=== PATIENT | female | born 1985 | race Caucasian/White ===

== ENCOUNTER 2017-07-12 10:42 | Emergency (ER) | payer SELFPAY ==
[~2017-07-12] VITALS: Ht 157.5 cm; Wt 83.5 kg
--- OUTSIDE RECORDS SUMMARY | 2017-07-12 10:49 | XMS REPORT | Continuity of Care Document ---
Author Author [facility] Organization [facility] Address Unknown Phone Unavailable Allergies There is no data. Medications There is no data. Problems There is no data. Procedures There is no data. Results There is no data. Encounters ACCT No. Visit Date/Time Discharge Status Pt. Type Provider Facility Loc./Unit Complaint [id number] 10/01/2013 10:16:47 10/01/2013 23:59:59 CLS Outpatient Sammie Allen
[2017-07-12] MEDS ORDERED: NS IV 1000 ML 1,000 ML IV ONE (10:55)
--- NOTE | 2017-07-12 11:03 | ED EENT ---
History of Present Illness General Chief Complaint: Eye Problems Stated Complaint: SWOLLEN OPTIC NERVE Nursing Triage Note: PT AMB TO ROOM 6 SENT FROM [facility], W POSSIBLE OPTIC NERVER SWELLING, PT DENIES EYE PROBLEMS AT PRESENT. NO CURRENT CO. WAS GOING FOR RT EYE EXAM AND SENT TO ED FOR FURTHER EVAL Source: patient, RN/ () Exam Limitations: no limitations History of Present Illness Date Seen by Provider: Jul 12, 2017 Time Seen by Provider: 10:49 Initial Comments The patient presents to the ER by private conveyance from her clearance coordinator office where she was getting a routine eye exam for new glasses. The last time she had her eyes checked was in 2011. She does not have any known eye issues however her clearance coordinator to the dilated eye exam and found that her right optic nerve was more edematous than her left. 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 Dr. faye called report and sent her over by private conveyance. The patient states she is not having any headaches, numbness, double vision, blurry vision, weakness or other eye problems. She does say she has headaches usually about once a month but she's had these since she was a child. She says she's had CT scans and she was a child working up a cause of her headaches. She describes her headaches as being bilateral occipital sometimes radiating to behind her eyes bilaterally and they do not throb. They typically require sleep to get over ; last less than a day and are accompanied with nausea vomiting and photophobia. Allergies and Home Medications Allergies Coded Allergies: Penicillins (Verified Allergy, Unknown, 07/12/17) amoxicillin (Verified Allergy, Unknown, 07/12/17) cefaclor (Verified Allergy, Unknown, 07/12/17) meloxicam (Verified Allergy, Unknown, 07/12/17) Patient Home Medication List Home Medication List Reviewed: Yes Review of Systems Constitutional: No chills, No diaphoresis Eyes: Denies Blindness, Denies Blurred Vision, Denies Drainage, Denies Decreased Acuity, Denies Foreign Body Sensation, Denies Inflammation, Denies Pain, Denies Photophobia, Denies Previous Injury, Denies Shadows, Denies Vision Changes, Denies Contact Lenses, Glasses Ears: Denies Dizziness, Denies Pain Nose: denies clots, denies congestion Mouth: denies loose teeth, denies pain, denies swelling Throat: denies pain, denies swelling Gastrointestinal: No nausea, No vomiting Past Oegcbnd-Lmjoxc-Growna Hx Patient Social History Alcohol Use: Occasionally Uses Recreational Drug Use: No Smoking Status: Current Someday Smoker Type Used: Cigarettes, Electronic/Vapor Recent Foreign Travel: No Contact w/Someone Who Travel: No Recent Infectious Disease Expo: No Reproductive System Last Menstrual Period: Jul 12, 2017 Physical Exam Vital Signs Vital Signs - First Documented 07/12/17 10:50 Temp 98.0 Pulse 94 Resp 16 B/P (MAP) 122/73 (89) Pulse Ox 97 General Appearance: WD/WN, no apparent distress Eyes: bilateral eye EOMI, bilateral eye papilledema, bilateral eye other ( bilateral pupils are dilated to 8 mm and unresponsive to light.) Ears: bilateral ear auricle normal, bilateral ear canal normal, bilateral ear TM normal Nose: normal inspection, No active bleeding Mouth/Throat: normal mouth inspection, pharynx normal Neck: non-tender, full range of motion, supple, normal inspection Cardiovascular: normal peripheral pulses, regular rate, rhythm Respiratory: chest non-tender, lungs clear, normal breath sounds, no respiratory distress, no accessory muscle use Neurologic/Psychiatric: animal services officer II-XII nml as tested, no motor/sensory deficits, alert, normal mood/affect, oriented x 3 Progress/Results/Core Measures Results/Orders Lab Results Laboratory Tests Test 07/12/17 11:15 Range/Units White Blood Count 7.2 4.3-11.0 10^3/uL Red Blood Count 4.75 4.35-5.85 10^6/uL Hemoglobin 12.7 11.5-16.0 G/DL Hematocrit 39 35-52 % Mean Corpuscular Volume 82 80-99 FL Mean Corpuscular Hemoglobin 27 25-34 PG Mean Corpuscular Hemoglobin Concent 33 32-36 G/DL Red Cell Distribution Width 14.1 10.0-14.5 % Platelet Count 437 H 130-400 10^3/uL Mean Platelet Volume 9.7 7.4-10.4 FL Neutrophils (%) (Auto) 59 42-75 % Lymphocytes (%) (Auto) 31 12-44 % Monocytes (%) (Auto) 9 0-12 % Eosinophils (%) (Auto) 2 0-10 % Basophils (%) (Auto) 1 0-10 % Neutrophils # (Auto) 4.2 1.8-7.8 X 10^3 Lymphocytes # (Auto) 2.2 1.0-4.0 X 10^3 Monocytes # (Auto) 0.6 0.0-1.0 X 10^3 Eosinophils # (Auto) 0.1 0.0-0.3 10^3/uL Basophils # (Auto) 0.0 0.0-0.1 10^3/uL Sodium Level 140 135-145 MMOL/L Potassium Level 4.1 3.6-5.0 MMOL/L Chloride Level 106 98-107 MMOL/L Carbon Dioxide Level 25 21-32 MMOL/L Anion Gap 9 5-14 MMOL/L Blood Urea Nitrogen 15 7-18 MG/DL Creatinine 0.79 0.60-1.30 MG/DL Estimat Glomerular Filtration Rate > 60 BUN/Creatinine Ratio 19 Glucose Level 104 70-105 MG/DL Calcium Level 9.7 8.5-10.1 MG/DL Total Bilirubin 0.3 0.1-1.0 MG/DL Aspartate Amino Transf (AST/SGOT) 31 5-34 U/L Alanine Aminotransferase (ALT/SGPT) 35 0-55 U/L Alkaline Phosphatase 97 40-136 U/L Total Protein 8.5 H 6.4-8.2 GM/DL Albumin 4.6 H 3.2-4.5 GM/DL My Orders Orders - REGULO HEALY Cbc With Automated Diff (07/12/17 10:55) Comprehensive Metabolic Panel (07/12/17 10:55) Saline Lock/Iv-Start (07/12/17 10:55) Saline Lock/Iv-Start (07/12/17 10:55) Ns Iv 1000 Ml (Sodium Chloride 0.9%) (07/12/17 10:55) Mri Brain & Orbits W/Wo Con (07/12/17 11:49) Gadobutrol Inj (Radiology) (Gadavist Inj (07/12/17 12:45) Medications Given in ED Current Medications Medications Dose Ordered Sig/Tara Route Start Time Stop Time Status Last Admin Dose Admin Gadobutrol 10 mmol ONCE ONCE IV 07/12/17 12:45 07/12/17 12:46 DC 07/12/17 12:35 8 MMOL Sodium Chloride 1,000 ml @ 0 mls/hr Q0M ONCE IV 07/12/17 10:55 07/12/17 10:57 DC 07/12/17 11:22 1,000 MLS/HR Vital Signs/I&O Vital Sign - Last 12Hours 07/12/17 10:50 Temp 98.0 Pulse 94 Resp 16 B/P (MAP) 122/73 (89) Pulse Ox 97 Blood Pressure Mean: 89 Progress Note #1: Time: 11:02 Progress Note Plan to evaluate her papilledema and possible differential for increased intracranial pressure we will obtain a MRI with gadolinium. She has had CTs many many years ago and would like to avoid giving her more radiation and live getting a much better test demonstrate increased ICP. Differential includes pseudopapilledema, malignant hypertension, diabetic papillopathy, etc. She does not have a history to support toxic or diabetic papillotomy. She does have PCOS. Her blood pressure while elevated at 140/70 is not malignant. No history of ingestion of toxins, ethylene glycol, methanol, ethambutol. No evidence for hyperviscosity, hypertension or acute blood loss. Progress Note #2: Time: 14:39 Progress Note Discussed the risk benefits and alternatives to continuing the workup for an asymptomatic patient which would include a spinal tap looking for the opening pressure. The patient says she had meningitis as a child and she still was traumatized by the lumbar tap and if she absolutely doesn't have to have it she would decline getting it at this time. We'll have her follow-up with her primary care physician at [facility]. Diagnostic Imaging Diagonstic Imaging: MRI (with contrast) Plain Films/CT/US/NM/MRI: head Comments VIA [facility]. [place], [place] NAME: AMY FIERRO [facility] REC#: [id number] PT STATUS: REG ER : 1985 PHYSICIAN: REGULO HEALY MD ADMIT DATE: 07/12/17/ER Draft Date of Exam:07/12/17 MRI BRAIN & ORBITS W/WO CON EXAMINATION: MRI of the brain and orbits with and without contrast. INDICATION: Right optic nerve swelling. TECHNIQUE: Multiplanar images utilizing both T1 and T2-weighted sequences were obtained. Additional images following administration of intravenous contrast were also performed. Coronal and axial planes were also obtained both before and after the administration of intravenous contrast. COMPARISON: There are no prior studies available for comparison. FINDINGS: The images through the orbits show that the optic nerves appear symmetrical. There is no abnormal enhancement of either optic nerve to suggest optic neuritis or a mass lesion. The extraocular muscles are also symmetrical and within normal limits. The globes and lenses are unremarkable as well. The optic chiasm is undisturbed. There is no intracranial mass, shift of the midline, or hemorrhage to suggest an acute abnormality. There is no abnormal enhancement on the post contrast series to suggest a neoplastic or infectious process either. Furthermore, there is no abnormal signal arising from the brain on the diffusion series to suggest an area of acute ischemia. The FLAIR series is also unremarkable for any signal abnormality in the periventricular white matter that would indicate demyelinating disease. The ventricles are not abnormally dilated. There are multiple retention cysts involving the floor of each maxillary antrum. These retention cysts have a conglomerate size of approximately 0.9 x 2.4 cm on the right and 1.7 x 2.5 cm on the left. There is also a small retention cyst along the medial wall of the left sphenoid sinus which measures 0.6 x 0.8 cm. The sinuses are otherwise clear. The seventh and eighth nerve complexes are unremarkable. IMPRESSION: 1. There is no evidence for an acute intracranial abnormality. In particular, there is no sign of a mass involving the optic nerves nor is there any evidence for optic neuritis. Clinical followup is recommended. 2. There are bilateral maxillary retention cysts and there is a small subcentimeter retention cyst in the sphenoid sinus. 3. These results will be discussed with Dr. Healy in the ER. Dictated on workstation # [id number] Dict: 07/12/17 1330 Trans: 07/12/17 1410 [id number] Interpreted by: TJ LE MD Electronically signed by: Reviewed: Reviewed by Me, Discussed w/Radiologist (Brenda) Departure Communication (PCP) Dr. faye, clearance coordinator communicated the imaging findings workup and plan. Impression Impression: Primary Impression: Papilledema of both eyes Disposition: 01 HOME, SELF-CARE Condition: Stable Departure-Patient Inst. Decision time for Depature: 14:41 Referrals: NO,LOCAL PHYSICIAN (PCP) Primary Care Physician Patient Instructions: NO INSTRUCTIONS GIVEN Add. Discharge Instructions: Please plan to follow up with a primary care physician in the next 2-4 weeks to discuss your findings. If you starts having any neurologic symptoms such as blurry vision, double vision, new or different headaches or significantly increased frequency of headaches you should return to the ER or your primary care physician for management. Please return to Optometry, Dr. Faye for continued evaluation and management of your eyes. All discharge instructions reviewed with patient and/or family. Voiced understanding. Work/School Note: Local Medical Staff Listing Copy Copies To 1: SIOBHAN GIPSON DO; JEREMIAH NOBLE OD REGULO HEALY Jul 12, 2017 11:03
[2017-07-12 11:23] LABS: BASOPHILS % (AUTO) 1 % (0-10); EOSINOPHILS # (AUTO) 0.1 10^3/uL (0.0-0.3); EOSINOPHILS % (AUTO) 2 % (0-10); HEMATOCRIT 39 % (35-52); HEMOGLOBIN 12.7 G/DL (11.5-16.0); LYMPHOCYTES # (AUTO) 2.2 X 10^3 (1.0-4.0); LYMPHOCYTES % (AUTO) 31 % (12-44); MEAN CORPUSCULAR HEMOGLOBIN 27 PG (25-34); MEAN CORPUSCULAR HGB CONC 33 G/DL (32-36); MEAN CORPUSCULAR VOLUME 82 FL (80-99); MEAN PLATELET VOLUME 9.7 FL (7.4-10.4); MONOCYTES # (AUTO) 0.6 X 10^3 (0.0-1.0); MONOCYTES % (AUTO) 9 % (0-12); NEUTROPHILS # (AUTO) 4.2 X 10^3 (1.8-7.8); NEUTROPHILS % (AUTO) 59 % (42-75); PLATELET COUNT 437 10^3/uL (130-400); RED BLOOD COUNT 4.75 10^6/uL (4.35-5.85); RED CELL DISTRIBUTION WIDTH 14.1 % (10.0-14.5); WHITE BLOOD COUNT 7.2 10^3/uL (4.3-11.0)
[2017-07-12 11:52] LABS: ALANINE AMINOTRANSFERASE 35 U/L (0-55); ALBUMIN 4.6 GM/DL (3.2-4.5); ALKALINE PHOSPHATASE 97 U/L (40-136); BILIRUBIN,TOTAL 0.3 MG/DL (0.1-1.0); BUN/CREATININE RATIO 19; CALCIUM 9.7 MG/DL (8.5-10.1); CARBON DIOXIDE 25 MMOL/L (21-32); CHLORIDE 106 MMOL/L (98-107); CREATININE SERUM 0.79 MG/DL (0.60-1.30); GFR ESTIMATED > 60; GLUCOSE 104 MG/DL (70-105); POTASSIUM 4.1 MMOL/L (3.6-5.0); SODIUM 140 MMOL/L (135-145); TOTAL PROTEIN 8.5 GM/DL (6.4-8.2)
[2017-07-12] MEDS ORDERED: GADOBUTROL 10 MMOL/10 ML (GADAVIST) VIAL IV ONE (12:45)
--- NOTE | 2017-07-12 14:10 | Diagnostic Imaging Report ---
EXAMINATION: MRI of the brain and orbits with and without contrast. INDICATION: Right optic nerve swelling. TECHNIQUE: Multiplanar images utilizing both T1 and T2-weighted sequences were obtained. Additional images following administration of intravenous contrast were also performed. Coronal and axial planes were also obtained both before and after the administration of intravenous contrast. COMPARISON: There are no prior studies available for comparison. FINDINGS: The images through the orbits show that the optic nerves appear symmetrical. There is no abnormal enhancement of either optic nerve to suggest optic neuritis or a mass lesion. The extraocular muscles are also symmetrical and within normal limits. The globes and lenses are unremarkable as well. The optic chiasm is undisturbed. There is no intracranial mass, shift of the midline, or hemorrhage to suggest an acute abnormality. There is no abnormal enhancement on the post contrast series to suggest a neoplastic or infectious process either. Furthermore, there is no abnormal signal arising from the brain on the diffusion series to suggest an area of acute ischemia. The FLAIR series is also unremarkable for any signal abnormality in the periventricular white matter that would indicate demyelinating disease. The ventricles are not abnormally dilated. There are multiple retention cysts involving the floor of each maxillary antrum. These retention cysts have a conglomerate size of approximately 0.9 x 2.4 cm on the right and 1.7 x 2.5 cm on the left. There is also a small retention cyst along the medial wall of the left sphenoid sinus which measures 0.6 x 0.8 cm. The sinuses are otherwise clear. The seventh and eighth nerve complexes are unremarkable. IMPRESSION: 1. There is no evidence for an acute intracranial abnormality. In particular, there is no sign of a mass involving the optic nerves nor is there any evidence for optic neuritis. Clinical followup is recommended. 2. There are bilateral maxillary retention cysts and there is a small subcentimeter retention cyst in the sphenoid sinus. 3. These results were discussed with Dr. Healy in the ER. Dictated by: Dictated on workstation # [id number]
[2017-07-12 14:48] VITALS: BP 122/73
== END 2017-07-12 14:47 | disposition home or self-care (01) ==
LOC: EDUNIT# 10:42 → ER 10:45
DX: H47.10 Unspecified papilledema (principal); F17.210 Nicotine dependence, cigarettes, uncomplicated; Z88.0 Allergy status to penicillin; Z88.1 Allergy status to other antibiotic agents; Z88.6 Allergy status to analgesic agent
CPT/HCPCS: 36415; 70553; 80053; 85025

== ENCOUNTER 2017-08-04 10:13 | Day surgery (SDC) | payer OTHER ==
[~2017-08-04] VITALS: Ht 157.5 cm; Wt 83.5 kg
--- OUTSIDE RECORDS SUMMARY | 2017-08-04 10:18 | XMS REPORT | Continuity of Care Document ---
Author Author [facility] Organization [facility] Address Unknown Phone Unavailable Allergies Active Description Code Type Severity Reaction Onset Reported/Identified Relationship to Patient Clinical Status Yes amoxicillin [id number] Drug Allergy Unknown N/A 07/12/2017 Yes cefaclor [id number] Drug Allergy Unknown N/A 07/12/2017 Yes meloxicam [id number] Drug Allergy Unknown N/A 07/12/2017 Yes Penicillins [id number] Drug Allergy Unknown N/A 07/12/2017 Medications There is no data. Problems Date Dx Coded Attending Type Code Diagnosis Diagnosed By 07/14/2017 REGULO BLAKELY MD Ot F17.210 NICOTINE DEPENDENCE, CIGARETTES, UNCOMPL 07/14/2017 REGULO BLAKELY MD Ot H47.091 OT DISORDERS OF OPTIC NERVE, NEC, RIGHT 07/14/2017 REGULO BLAKELY MD Ot H47.10 UNSPECIFIED PAPILLEDEMA 07/14/2017 REGULO BLAKELY MD Ot Z88.0 ALLERGY STATUS TO PENICILLIN 07/14/2017 REGULO BLAKELY MD Ot Z88.1 ALLERGY STATUS TO OTHER ANTIBIOTIC AGENT 07/14/2017 REGULO BLAKELY MD Ot Z88.6 ALLERGY STATUS TO ANALGESIC AGENT STATUS 07/14/2017 REGULO BLAKELY MD Ot F17.210 NICOTINE DEPENDENCE, CIGARETTES, UNCOMPL 07/14/2017 REGULO BLAKELY MD Ot H47.091 OT DISORDERS OF OPTIC NERVE, NEC, RIGHT 07/14/2017 REGULO BLAKELY MD Ot H47.10 UNSPECIFIED PAPILLEDEMA 07/14/2017 REGULO BLAKELY MD Ot Z88.0 ALLERGY STATUS TO PENICILLIN 07/14/2017 REGULO BLAKELY MD Ot Z88.1 ALLERGY STATUS TO OTHER ANTIBIOTIC AGENT 07/14/2017 REGULO BLAKELY MD Ot Z88.6 ALLERGY STATUS TO ANALGESIC AGENT STATUS Procedures There is no data. Results Test Result Range Complete blood count (CBC) with automated white blood cell (WBC) differential - 07/12/17 11:15 Blood leukocytes automated count (number/volume) 7.2 10*3/uL 4.3-11.0 Blood erythrocytes automated count (number/volume) 4.75 10*6/uL 4.35-5.85 Venous blood hemoglobin measurement (mass/volume) 12.7 g/dL 11.5-16.0 Blood hematocrit (volume fraction) 39 % 35-52 Automated erythrocyte mean corpuscular volume 82 [foz_us] 80-99 Automated erythrocyte mean corpuscular hemoglobin (mass per erythrocyte) 27 pg 25-34 Automated erythrocyte mean corpuscular hemoglobin concentration measurement ( mass/volume) 33 g/dL 32-36 Automated erythrocyte distribution width ratio 14.1 % 10.0-14.5 Automated blood platelet count (count/volume) 437 10*3/uL 130-400 Automated blood platelet mean volume measurement 9.7 [foz_us] 7.4-10.4 Automated blood neutrophils/100 leukocytes 59 % 42-75 Automated blood lymphocytes/100 leukocytes 31 % 12-44 Blood monocytes/100 leukocytes 9 % 0-12 Automated blood eosinophils/100 leukocytes 2 % 0-10 Automated blood basophils/100 leukocytes 1 % 0-10 Blood neutrophils automated count (number/volume) 4.2 10*3 1.8-7.8 Blood lymphocytes automated count (number/volume) 2.2 10*3 1.0-4.0 Blood monocytes automated count (number/volume) 0.6 10*3 0.0-1.0 Automated eosinophil count 0.1 10*3/uL 0.0-0.3 Automated blood basophil count (count/volume) 0.0 10*3/uL 0.0-0.1 Comprehensive metabolic panel - 07/12/17 11:15 Serum or plasma sodium measurement (moles/volume) 140 mmol/L 135-145 Serum or plasma potassium measurement (moles/volume) 4.1 mmol/L 3.6-5.0 Serum or plasma chloride measurement (moles/volume) 106 mmol/L 98-107 Carbon dioxide 25 mmol/L 21-32 Serum or plasma anion gap determination (moles/volume) 9 mmol/L 5-14 Serum or plasma urea nitrogen measurement (mass/volume) 15 mg/dL 7-18 Serum or plasma creatinine measurement (mass/volume) 0.79 mg/dL 0.60-1.30 Serum or plasma urea nitrogen/creatinine mass ratio 19 NRG Serum or plasma creatinine measurement with calculation of estimated glomerular filtration rate > NRG Serum or plasma glucose measurement (mass/volume) 104 mg/dL 70-105 Serum or plasma calcium measurement (mass/volume) 9.7 mg/dL 8.5-10.1 Serum or plasma total bilirubin measurement (mass/volume) 0.3 mg/dL 0.1-1.0 Serum or plasma alkaline phosphatase measurement (enzymatic activity/volume) 97 U/L 40-136 Serum or plasma aspartate aminotransferase measurement (enzymatic activity/ volume) 31 U/L 5-34 Serum or plasma alanine aminotransferase measurement (enzymatic activity/volume ) 35 U/L 0-55 Serum or plasma protein measurement (mass/volume) 8.5 g/dL 6.4-8.2 Serum or plasma albumin measurement (mass/volume) 4.6 g/dL 3.2-4.5 CRP - 07/17/17 14:11 C-REACTIVE PROTEIN 18.8 mg/L <8.0 RA (RHEUMATOID) FACTOR - 07/21/17 10:12 RHEUMATOID FACTOR <14 IU/mL <14 Encounters ACCT No. Visit Date/Time Discharge Status Pt. Type Provider Facility Loc./Unit Complaint [id number] 10/01/2013 10:16:47 10/01/2013 23:59:59 CLS Outpatient Sammie Allen [id number] 07/28/2017 13:00:00 07/28/2017 23:59:59 CLS Outpatient ELSA SELLERS [facility] [id number] 07/21/2017 10:00:00 Document Registration [id number] 07/17/2017 13:40:00 Document Registration [id number] 07/12/2017 10:45:00 07/12/2017 14:47:00 DIS Outpatient REDDY CHE, REGULO Correa [facility] ER SWOLLEN OPTIC NERVE
[2017-08-04 11:54] VITALS: BP 127/77
--- NOTE | 2017-08-04 14:12 | Anesthesia-Procedure Note ---
Procedures/Interventions Procedure Start/Stop/Diagnosis Date of Procedure: Aug 04, 2017 Start Time: 11:10 Referring Physician: Dr Conroy Preprocedural Diagnosis: Headaches, Poss Pseudotumor Cerebri Brief History Anesthesia Note ([id number]) Pt sent here for Lumbar Puncture. She has a long-standing history of headaches and approximately 4 weeks ago her mechanical cad designer noticed an abnormality on her eye exam. She was sent here for opening pressure on lumbar puncture. +/- Lumbar Puncture was discussed with patient and consent was signed. Stop Time: 11:30 Lumbar Puncture Discussed Risk,Benefits: Yes Patient Consents: Yes Position: L3-4, Left Sterile Technique: Yes (Sterile Prep and drape with ChloraPrep) Opening Pressure: Opening pressure of 34 cm CSF Fluid Color: Clear Spinal Needle Used: Other (25 G Pencan) Procedure Notes First attempt at L4-5 by Thalia Merritt had only bony contact. She attempted under my direct supervision and I also had only bony contact so I relocalized at the L3-4 level and got + CSF after 1 redirect. She had a transient paresthesia which resolved with needle withdrawal. No additional lab tests were ordered by Dr Conroy so after the opening pressure of 34 cm CSF was obtained, needle was removed and a sterile bandage applied. Pt tolerated the procedure well. KARISSA MAYO DO Aug 04, 2017 14:11
== END 2017-08-04 11:54 | disposition home or self-care (01) ==
LOC: SDC 10:13
PROVIDERS: ATTEND Internal Medicine
DX: R51 Headache (principal); H47.10 Unspecified papilledema

== ENCOUNTER → 2019-10-09 | Outpatient (CLI) | payer OTHER ==
--- NOTE | 2019-10-09 10:03 | Diagnostic Imaging Report ---
PROCEDURE: US Non-ob pelvis comp/trans. TECHNIQUE: Multiple Real-time grayscale images were obtained of the pelvis in various projections endovaginally. Transabdominal imaging was also performed. INDICATION: Abnormal uterine bleeding. FINDINGS: The uterus measures 7.8 x 4.6 x 3.7 cm. The endometrium is 8 mm in thickness. No myometrial mass is detected. The right ovary measures 2.9 x 1.8 x 2.1 cm and the left ovary measures 2.8 x 2.6 x 2.3 cm. There is blood flow to both ovaries. No adnexal mass or free fluid is seen. There appear to be cervical nabothian cysts present. IMPRESSION: Unremarkable pelvic ultrasound. Dictated by: Dictated on workstation # [id number]
== END ==
LOC: RAD 08:59
PROVIDERS: ATTEND Obstetrics & Gynecology
DX: N93.8 Other specified abnormal uterine and vaginal bleeding (principal)
CPT/HCPCS: 76830; 76856

== ENCOUNTER 2019-10-17 05:31 | Outpatient (RCR) | payer OTHER ==
[~2019-10-17] VITALS: Ht 160 cm; Wt 81.8 kg
[~2019-10-17 05:31] MED LIST: AMIT10TA6 PO; ASCO-129 PO; FERR-84 PO; FURO20TA4 PO; METO10TA3 PO; POTA-51 PO
== END 2019-10-17 14:43 | disposition home or self-care (01) ==
LOC: PREOP 05:31
PROVIDERS: ATTEND Obstetrics & Gynecology
DX: Z01.818 Encounter for other preprocedural examination (principal); Z11.59 Encounter for screening for other viral diseases
CPT/HCPCS: 87635

== ENCOUNTER 2019-10-21 09:29 | Day surgery (SDC) | payer OTHER ==
[2019-10-21] VITALS (9 sets, daily range): BP systolic 104–124; BP diastolic 76–97
[~2019-10-21] VITALS: Ht 160 cm; Wt 81.8 kg
--- OUTSIDE RECORDS SUMMARY | 2019-10-21 09:56 | XMS REPORT ---
Author Author KING Nhung MARLENE [facility] Address [address] [place] [address] Care Team Providers Care Global Compensation Manager Name Role Phone MARLENE CERDA Unavailable PROBLEMS Type Condition ICD9-CM Code [id number] Code Onset Dates Condition S tatus SNOMED Code Problem Dysfunctional uterine bleeding N93.8 Active 79084269 Problem Chronic fatigue R53.82 Active 8422 9001 Problem Migraine with aura and without status migrainosu s, not intractable G43.109 Active 5451128 Problem Edema of optic nerve H47.10 Active [id number] ALLERGIES No Information ENCOUNTERS Encounter Location Date Diagnosis [facility] [address] [facility] [id number] [address] [place] [phone] 28 Mar, 2018 [facility] [address] [facility] [id number] [address] [place] [phone] 13 Mar, 2018 [facility] [address] [facility] [id number] [address] [place] [phone] 18 Jan, 2018 Dysfunctional uterine bleedi ng N93.8 and Migraine with aura and without status migrainosus, not intractable G43.109 [facility] [address] [facility] [id number] [address] [place] [phone] 17 Jan, 2018 [facility] [address] [id number] [address] [place] [phone] 13 Dec, 2017 Dysfunctional uterine bleedi ng N93.8 [facility] [address] [facility] [id number] [address] [place] [phone] 11 Dec, 2017 Dysfunctional uterine bleedi ng N93.8 [facility] [address] [facility] [id number] [address] [place] [phone] 04 Dec, 2017 [facility] [address] [facility] [id number] [address] [place] [phone] Nov, [facility] [address] [facility] [id number] [address] [place] [phone] Nov, Family history of diabetes m ellitus (DM) Z83.3 and Migraine with aura and without status migrainosus, not intractable G43.109 [facility] [address] [facility] [id number] [address] [place] [phone] Nov, [facility] [address] [id number] [address] [place] [address] [phone] Oct, [facility] [address] [id number] [address] [place] [address] [phone] Oct, Dental examination Z01.20 [facility] [address] [facility] [id number] [address] [place] [phone] Sep, [facility] [address] [place] [id number] [address] [place] [phone] Sep, Migraine with aura and witho ut status migrainosus, not intractable G43.109 and Chronic fatigue R53.82 [facility] [address] [facility] [id number] [address] [place] [address] August, Migraine with aura and witho ut status migrainosus, not intractable G43.109 ; Encounter to establish care Z76.89 and Contact dermatitis, unspecified contact dermatitis type, unspecified trigger L25.9 [facility] [address] [facility] [id number] [address] [place] [phone] August, [facility] [address] [facility] [id number] [address] [place] [phone] Jul, [facility] [address] [facility] [id number] [address] [place] [address] Jun, Edema of optic nerve H47.10 [facility] [address] [facility] [id number] [address] [place] [phone] Jun, Migraine with aura and witho ut status migrainosus, not intractable G43.109 [facility] [address] [id number] [address] [place] [phone] Jun, [facility] [address] [id number] [address] [place] [address] Jun, Edema of optic nerve H47.10 [facility] [address] [id number] [address] [place] [phone] Jun, Edema of optic nerve H47.10 [facility] [address] [id number] [address] [place] [phone] Jun, Edema of optic nerve H47.10 [facility] [address] [id number] [address] [place] [phone] Jun, Edema of optic nerve H47.10 [facility] [address] [facility] [id number] [address] [place] [phone] Jun, [facility] [address] [id number] [address] [place] [address] [phone] Mar, Dental caries K02.9 [facility] [address] [facility] [id number] [address] [place] [address] [phone] Jan, Dental examination Z01.20 IMMUNIZATIONS No Known Immunizations SOCIAL HISTORY Never Assessed REASON FOR VISIT Requests return call PLAN OF CARE VITAL SIGNS MEDICATIONS Unknown Medications RESULTS No Results PROCEDURES No Known procedures INSTRUCTIONS MEDICATIONS ADMINISTERED No Known Medications MEDICAL (GENERAL) HISTORY Type Description Date Medical History Anemia Medical History Arthritis Medical History Back Trouble Surgical History tonsillectomy
--- OUTSIDE RECORDS SUMMARY | 2019-10-21 09:56 | XMS REPORT ---
Author Author KING Nhung ROSARIO [facility] Address [address] [place] [address] Care Team Providers Care Forgesmith Name Role Phone MARLENE CERDA Unavailable PROBLEMS Type Condition ICD9-CM Code QZK49-FE Code Onset Dates Condition S tatus SNOMED Code Problem Anxiety F41.9 Active 07911688 Problem Dysfunctional uterine bleeding N93.8 Active 33994015 Problem Edema of optic nerve H47.10 Active 550411716 Problem Chronic fatigue R53.82 Active 8422 9001 Problem Migraine with aura and without status migrainosu s, not intractable G43.109 Active 2254285 ALLERGIES No Information ENCOUNTERS Encounter Location Date Diagnosis [id number] [place] [id number] [address] [place] [phone] Mar, [place] [address] [address] 28 Mar, 2018 Anxiety F41.9 ; Encounter fo r initial prescription of contraceptive pills Z30.011 ; Migraine with aura and without status migrainosus, not intractable G43.109 and Dysfunctional uterine bleeding N93.8 [place] [address] [place] [id number] [address] [place] [address] Mar, [facility] [address] [place] [id number] [address] [place] [phone] 18 Jan, 2018 Dysfunctional uterine bleedi ng N93.8 and Migraine with aura and without status migrainosus, not intractable G43.109 [place] [address] [place] [id number] [address] [place] [phone] 17 Jan, 2018 [place] [address] [place] [id number] [address] [place] [phone] Dec, Dysfunctional uterine bleedi ng N93.8 [place] [address] [facility] [id number] [address] [place] [phone] Dec, Dysfunctional uterine bleedi ng N93.8 [facility] [address] [facility] [id number] [address] [place] [phone] Dec, [facility] [address] [facility] [id number] [address] [place] [phone] Nov, [facility] [address] [place] [id number] [place] [phone] Nov, Family history of diabetes m ellitus (DM) Z83.3 and Migraine with aura and without status migrainosus, not intractable G43.109 [facility] [address] [facility] [id number] [address] [place] [phone] Nov, [facility] [address] [id number] [place] [address] [phone] Oct, [facility] [address] [id number] Oct, Dental examination Z01.20 [place] [address] [place] [id number] [address] [place] [phone] Sep, [facility] [address] [place] [id number] [address] [place] [phone] Sep, Migraine with aura and witho ut status migrainosus, not intractable G43.109 and Chronic fatigue R53.82 [facility] [address] [place] [id number] [address] [place] [phone] August, Migraine with aura and witho ut status migrainosus, not intractable G43.109 ; Encounter to [facility] care Z76.89 and Contact dermatitis, unspecified contact dermatitis type, unspecified trigger L25.9 [facility] [address] [facility] [id number] [address] [place] [phone] August, [facility] [address] [facility] [id number] [address] [place] [phone] Jul, [place] [address] [id number] [address] [place] [phone] 30 Jun, 2017 Edema of optic nerve H47.10 [facility] [address] [id number] [address] [place] [phone] Jun, Migraine with aura and witho ut status migrainosus, not intractable G43.109 [facility] [address] [id number] [address] [place] [phone] Jun, [facility] [address] [id number] [address] [place] [phone] Jun, Edema of optic nerve H47.10 [facility] [address] [id number] [address] [place] [phone] Jun, Edema of optic nerve H47.10 [facility] [address] [facility] [id number] [address] [place] [phone] Jun, Edema of optic nerve H47.10 [facility] [address] [id number] [address] [place] [phone] Jun, Edema of optic nerve H47.10 [facility] [address] [facility] [id number] [address] [place] [phone] Jun, [facility] [address] [facility] [id number] [address] [place] [address] [phone] Mar, Dental caries K02.9 [facility] [address] [facility] [id number] [address] [place] [address] [phone] Jan, Dental examination Z01.20 IMMUNIZATIONS No Known Immunizations SOCIAL HISTORY Never Assessed REASON FOR VISIT Medication question PLAN OF CARE VITAL SIGNS MEDICATIONS Unknown Medications RESULTS No Results PROCEDURES No Known procedures INSTRUCTIONS MEDICATIONS ADMINISTERED No Known Medications MEDICAL (GENERAL) HISTORY Type Description Date Medical History Anemia Medical History Arthritis Medical History Back Trouble Surgical History tonsillectomy
--- OUTSIDE RECORDS SUMMARY | 2019-10-21 09:56 | XMS REPORT ---
Author Author KING Nhung ROSARIO [facility] Address [address] [place] [address] Care Team Providers Care Habitat Conservation Planner Name Role Phone MARLENE CERDA Unavailable PROBLEMS Type Condition ICD9-CM Code UVP55-TM Code Onset Dates Condition S tatus SNOMED Code Problem Anxiety F41.9 Active 41223398 Problem Dysfunctional uterine bleeding N93.8 Active 29390668 Problem Edema of optic nerve H47.10 Active 965637337 Problem Chronic fatigue R53.82 Active 8422 9001 Problem Migraine with aura and without status migrainosu s, not intractable G43.109 Active 2568886 ALLERGIES Substance Reaction Event Type Date Status Penicillin V Potassium Unknown Drug Allergy Mar, Activ e Keflex nausea Drug Allergy Mar, Active Amoxicillin anaphylaxis Drug Allergy Mar, Active C-core Unknown Non Drug Allergy Mar, Active ENCOUNTERS Encounter Location Date Diagnosis [place] [id number] [phone] Mar, Anxiety F41.9 ; Encounter fo r initial prescription of contraceptive pills Z30.011 ; Migraine with aura and without status migrainosus, not intractable G43.109 and Dysfunctional uterine bleeding N93.8 [facility] [address] [place] [id number] [address] [place] [phone] Mar, [facility] [address] [place] [id number] [address] [place] [phone] 18 Jan, 2018 Dysfunctional uterine bleedi ng N93.8 and Migraine with aura and without status migrainosus, not intractable G43.109 [facility] [address] [place] [id number] [address] [place] [phone] 17 Jan, 2018 [place] [address] [place] [id number] [address] [place] [phone] Dec, Dysfunctional uterine bleedi ng N93.8 [facility] [address] [id number] [address] [place] [phone] Dec, Dysfunctional uterine bleedi ng N93.8 [facility] [address] [id number] [address] [place] [phone] Dec, [facility] [address] [id number] [address] [place] [phone] Nov, [facility] [address] [id number] [address] [place] [phone] Nov, Family history of diabetes m ellitus (DM) Z83.3 and Migraine with aura and without status migrainosus, not intractable G43.109 [facility] [address] [facility] [id number] [address] [place] [phone] Nov, [facility] [address] [id number] [address] [place] [address] [phone] Oct, [facility] [address] [id number] [address] [place] [address] [phone] Oct, Dental examination Z01.20 [facility] [address] [facility] [id number] [address] [place] [phone] Sep, [facility] [address] [facility] [id number] [address] [place] [phone] Sep, Migraine with aura and witho ut status migrainosus, not intractable G43.109 and Chronic fatigue R53.82 [facility] [address] [id number] [address] [place] [phone] August, Migraine with aura and witho ut status migrainosus, not intractable G43.109 ; Encounter to establish care Z76.89 and Contact dermatitis, unspecified contact dermatitis type, unspecified trigger L25.9 [facility] [address] [facility] [id number] [address] [place] [phone] August, [facility] [address] [facility] [id number] [address] [place] [phone] Jul, [facility] [address] [facility] [id number] [address] [place] [phone] 30 Jun, 2017 Edema of optic nerve H47.10 [facility] [address] [id number] [address] [place] [phone] Jun, Migraine with aura and witho ut status migrainosus, not intractable G43.109 [facility] [address] [id number] [address] [place] [phone] Jun, [facility] [address] [facility] [id number] [address] [place] [phone] Jun, Edema of optic nerve H47.10 [facility] [address] [facility] [id number] [address] [place] [phone] Jun, Edema of optic nerve H47.10 [facility] [address] [facility] [id number] [address] [place] [phone] Jun, Edema of optic nerve H47.10 [facility] [address] [id number] [address] [place] [phone] Jun, Edema of optic nerve H47.10 [facility] [address] [facility] [id number] [address] [place] [phone] 14 Jun, 2017 [facility] [address] [facility] [id number] [address] [place] [address] [phone] Mar, Dental caries K02.9 [facility] [address] [facility] [id number] [address] [place] [address] [phone] Jan, Dental examination Z01.20 IMMUNIZATIONS No Known Immunizations SOCIAL HISTORY Never Assessed REASON FOR VISIT Anxiety, had been seen here in December for low hemoglobin and was put on medic ation and states that she has not had a period since then Castillo Villafana MA, Is also n areli medications refilled PLAN OF CARE Activity Details Follow Up 3 Months Reason:DUB, anxiety VITAL SIGNS Height 61 in 2018-03-28 Weight 188.2 lbs 2018-03-28 Temperature 97.4 degrees Fahrenheit 2018-03-28 Heart Rate 99 bpm 2018-03-28 Respiratory Rate 20 2018-03-28 BMI 35.56 kg/m2 2018-03-28 Blood pressure systolic 126 mmHg 2018-03-28 Blood pressure diastolic 72 mmHg 2018-03-28 MEDICATIONS Medication Instructions Dosage Frequency Start Date End Date Duration S tatus HydrOXYzine HCl 25 MG Orally every 8 hrs 1 tablet as needed 8h Mar, 30 day(s) Active ibuprofen 800 mg oral TID as needed 1 tab Active Norethin Maynor-Eth Estrad-FE 1-20 MG-MCG Orally Once a day 1 tablet 24h Mar, 28 day(s) Active Ferrous Sulfate 325 (65 Fe) MG Orally twice a day 1 tablet 12h Dec, 30 days Active Jhxurdlfad-FDML-Ljebejvb 50-325-40 MG Orally 2 times a day 1 cap renee as needed 12h Sep, Active Zofran ODT 4 MG Orally every 4 hrs 1 tablet on the tong ue and allow to dissolve as needed 4h Dec, Active RESULTS No Results PROCEDURES No Known procedures INSTRUCTIONS MEDICATIONS ADMINISTERED No Known Medications MEDICAL (GENERAL) HISTORY Type Description Date Medical History Anemia Medical History Arthritis Medical History Back Trouble Surgical History tonsillectomy
--- OUTSIDE RECORDS SUMMARY | 2019-10-21 09:57 | XMS REPORT ---
Author Author Nhung PIRES Organization [facility] Address [address] [place] [address] Care Team Providers Care Area Captain Name Role Phone BALJINDER PIRES Unavailable PROBLEMS Type Condition ICD9-CM Code UKD75-GC Code Onset Dates Condition S tatus SNOMED Code Problem Chronic fatigue R53.82 Active 8422 9001 Problem Migraine with aura and without status migrainosu s, not intractable G43.109 Active 8792888 Problem Edema of optic nerve H47.10 Active 378013610 ALLERGIES No Information ENCOUNTERS Encounter Location Date Diagnosis [facility] [address] [id number] [address] [place] [address] [phone] Oct, [facility] [address] [facility] [id number] [address] [place] [phone] Sep, [facility] [address] [facility] [id number] [address] [place] [phone] Sep, Migraine with aura and witho ut status migrainosus, not intractable G43.109 and Chronic fatigue R53.82 [facility] [address] [facility] [id number] [address] [place] [phone] August, Migraine with aura and witho ut status migrainosus, not intractable G43.109 ; Encounter to establish care Z76.89 and Contact dermatitis, unspecified contact dermatitis type, unspecified trigger L25.9 [facility] [address] [facility] [id number] [address] [place] [phone] August, [facility] [address] [facility] [id number] [address] [place] [phone] Jul, [facility] [address] [facility] [id number] [address] [place] [phone] Jun, Edema of optic nerve H47.10 [facility] [address] [id number] [address] [place] [phone] Jun, Migraine with aura and witho ut status migrainosus, not intractable G43.109 [facility] [address] [id number] [address] [place] [phone] 28 Jun, 2017 [facility] [address] [id number] [address] [place] [phone] Jun, Edema of optic nerve H47.10 [facility] [address] [id number] [address] [place] [phone] Jun, Edema of optic nerve H47.10 [facility] [address] [id number] [address] [place] [phone] 22 Jun, 2017 Edema of optic nerve H47.10 [facility] [address] [id number] [address] [place] [phone] Jun, Edema of optic nerve H47.10 [facility] [address] [id number] [address] [place] [phone] 14 Jun, 2017 [facility] [id number] [place] [address] [id number] Mar, Dental caries K02.9 [facility] [address] [facility] [id number] [address] [place] [address] [phone] Jan, Dental examination Z01.20 IMMUNIZATIONS No Known Immunizations SOCIAL HISTORY Never Assessed REASON FOR VISIT Lumbar punture PLAN OF CARE VITAL SIGNS MEDICATIONS Unknown Medications RESULTS No Results PROCEDURES No Known procedures INSTRUCTIONS MEDICATIONS ADMINISTERED No Known Medications MEDICAL (GENERAL) HISTORY Type Description Date Medical History Anemia Medical History Arthritis Medical History Back Trouble Surgical History tonsillectomy
--- OUTSIDE RECORDS SUMMARY | 2019-10-21 09:57 | XMS REPORT ---
Author Author KING Nhung ROSARIO Organization [facility] Address [address] [place] [address] Care Team Providers Care Appointment Clerk Name Role Phone MARLENE CERDA Unavailable PROBLEMS Type Condition ICD9-CM Code [id number] Code Onset Dates Condition S tatus SNOMED Code Problem Chronic fatigue R53.82 Active 8422 9001 Problem Migraine with aura and without status migrainosu s, not intractable G43.109 Active 4774708 Problem Edema of optic nerve H47.10 Active 066215392 ALLERGIES Substance Reaction Event Type Date Status Keflex nausea Drug Allergy August, Active Amoxicillin anaphylaxis Drug Allergy August, Active C-core Unknown Non Drug Allergy August, Active ENCOUNTERS Encounter Location Date Diagnosis [facility] [id number] [place] [phone] Nov, Family history of diabetes m ellitus (DM) Z83.3 and Migraine with aura and without status migrainosus, not intractable G43.109 [facility] [address] [id number] [address] [place] [phone] Nov, [facility] [id number] [place] [address] [phone] Oct, [facility] [address] [id number] [address] [place] [address] [id number] Oct, Dental examination Z01.20 [facility] [address] [facility] [id number] [address] [place] [phone] Sep, [facility] [address] [id number] [address] [place] [phone] Sep, Migraine with aura and witho ut status migrainosus, not intractable G43.109 and Chronic fatigue R53.82 [facility] [address] [id number] [address] [place] [phone] August, Migraine with aura and witho ut status migrainosus, not intractable G43.109 ; Encounter to establish care Z76.89 and Contact dermatitis, unspecified contact dermatitis type, unspecified trigger L25.9 [facility] [address] [id number] [address] [place] [phone] August, [facility] [address] [id number] [address] [place] [phone] Jul, [facility] [address] [id number] [address] [place] [phone] 30 Jun, 2017 Edema of optic nerve H47.10 [facility] [address] [facility] [id number] [address] [place] [phone] Jun, Migraine with aura and witho ut status migrainosus, not intractable G43.109 [facility] [address] [id number] [address] [place] [phone] Jun, [facility] [address] [id number] [address] [place] [phone] Jun, Edema of optic nerve H47.10 [facility] [address] [facility] [id number] [address] [place] [phone] Jun, Edema of optic nerve H47.10 [facility] [address] [facility] [id number] [address] [place] [phone] Jun, Edema of optic nerve H47.10 [facility] [address] [id number] [address] [place] [phone] Jun, Edema of optic nerve H47.10 [facility] [address] [facility] [id number] [address] [place] [phone] 14 Jun, 2017 [facility] [address] [id number] [address] [place] [address] [id number] Mar, Dental caries K02.9 [facility] [address] [id number] [address] [place] [address] [place] [phone] Jan, Dental examination Z01.20 IMMUNIZATIONS No Known Immunizations SOCIAL HISTORY Never Assessed REASON FOR VISIT Establish Care from Dr. Conroy. Rodney, RN, Needs refills on migrain medication s and rash appearing intermittently. PLAN OF CARE Activity Details Follow Up 4 Weeks Reason:migraines VITAL SIGNS Height 61 in 2017-09-08 Weight 185.5 lbs 2017-09-08 Heart Rate 86 bpm 2017-09-08 Respiratory Rate 20 2017-09-08 BMI 35.05 kg/m2 2017-09-08 Blood pressure systolic 108 mmHg 2017-09-08 Blood pressure diastolic 64 mmHg 2017-09-08 MEDICATIONS Medication Instructions Dosage Frequency Start Date End Date Duration S tatus Triamcinolone Acetonide 0.1 % Externally Twice a day 1 appli cation to affected area 12h August, 30 days Active Ondansetron 4 MG Orally every 8 hours, PRN 1 tablet Jun, 05 days Active Topiramate 25 MG Orally Once a day 1 tablet 24h August, 30 day(s) Active Fioricet 50-300-40 MG Orally 2 times a day PRN 1 capsule as needed Active RESULTS No Results PROCEDURES No Known procedures INSTRUCTIONS MEDICATIONS ADMINISTERED No Known Medications MEDICAL (GENERAL) HISTORY Type Description Date Medical History Anemia Medical History Arthritis Medical History Back Trouble Surgical History tonsillectomy
--- OUTSIDE RECORDS SUMMARY | 2019-10-21 09:57 | XMS REPORT ---
Author Author Nhung PIRES Organization [facility] Address [address] [place] [address] Care Team Providers Care Straight Knife Machine Cutter Name Role Phone BALJINDER PIRES Unavailable PROBLEMS Type Condition ICD9-CM Code UBQ49-SW Code Onset Dates Condition S tatus SNOMED Code Problem Chronic fatigue R53.82 Active 8422 9001 Problem Migraine with aura and without status migrainosu s, not intractable G43.109 Active 4185325 Problem Edema of optic nerve H47.10 Active [id number] ALLERGIES No Information ENCOUNTERS Encounter Location Date Diagnosis [facility] [address] [id number] [address] [place] [address] [phone] Oct, [facility] [address] [facility] [id number] [address] [place] [phone] Sep, [facility] [address] [facility] [id number] [address] [place] [phone] Sep, Migraine with aura and witho ut status migrainosus, not intractable G43.109 and Chronic fatigue R53.82 [facility] [address] [facility] [id number] [address] [place] [phone] August, Migraine with aura and witho ut status migrainosus, not intractable G43.109 ; Encounter to establish care Z76.89 and Contact dermatitis, unspecified contact dermatitis type, unspecified trigger L25.9 [facility] [address] [facility] [id number] [address] [place] [phone] August, [facility] [address] [facility] [id number] [address] [place] [phone] Jul, [facility] [address] [facility] [id number] [address] [place] [address] Jun, Edema of optic nerve H47.10 [facility] [address] [id number] [address] [place] [address] Jun, Migraine with aura and witho ut status migrainosus, not intractable G43.109 [facility] [address] [id number] [address] [place] [phone] 28 Jun, 2017 [facility] [address] [id number] [address] [place] [phone] Jun, Edema of optic nerve H47.10 [facility] [address] [id number] [address] [place] [phone] Jun, Edema of optic nerve H47.10 [facility] [address] [id number] [address] [place] [phone] 22 Jun, 2017 Edema of optic nerve H47.10 [facility] [address] [id number] [address] [place] [phone] Jun, Edema of optic nerve H47.10 [facility] [address] [id number] [address] [place] [phone] 14 Jun, 2017 [facility] [address] [place] [address] [phone] Mar, Dental caries K02.9 [facility] [address] [id number] [address] [place] [address] [phone] Jan, Dental examination Z01.20 IMMUNIZATIONS No Known Immunizations SOCIAL HISTORY Never Assessed REASON FOR VISIT Labs PLAN OF CARE VITAL SIGNS MEDICATIONS Unknown Medications RESULTS No Results PROCEDURES No Known procedures INSTRUCTIONS MEDICATIONS ADMINISTERED No Known Medications MEDICAL (GENERAL) HISTORY Type Description Date Medical History Anemia Medical History Arthritis Medical History Back Trouble Surgical History tonsillectomy
--- OUTSIDE RECORDS SUMMARY | 2019-10-21 09:57 | XMS REPORT ---
Author Author KING Nhung MARLENE [facility] Address [address] [place] [address] Care Team Providers Care Hair Spinner Name Role Phone MARLENE CERDA Unavailable PROBLEMS Type Condition ICD9-CM Code CNF99-KO Code Onset Dates Condition S tatus SNOMED Code Problem Dysfunctional uterine bleeding N93.8 Active 50142438 Problem Chronic fatigue R53.82 Active 8422 9001 Problem Migraine with aura and without status migrainosu s, not intractable G43.109 Active 6018991 Problem Edema of optic nerve H47.10 Active [id number] ALLERGIES No Information ENCOUNTERS Encounter Location Date Diagnosis [facility] [place] [address] [phone] 16 Jan, 2018 [facility] [place] [address] [id number] [address] [place] [phone] 13 Dec, 2017 Dysfunctional uterine bleedi ng N93.8 [facility] [place] [id number] [place] [phone] Dec, Dysfunctional uterine bleedi ng N93.8 [facility] [place] [address] [id number] [address] [place] [phone] Dec, [facility] [place] [address] [id number] [address] [place] [phone] Nov, [facility] [place] [id number] [place] [phone] Nov, Family history of diabetes alyce linder (DM) Z83.3 and Migraine with aura and without status migrainosus, not intractable G43.109 [facility] [address] [facility] [id number] [address] [place] [phone] Nov, [facility] [address] [id number] [address] [place] [address] [phone] Oct, [facility] [address] [id number] [address] [place] [address] [phone] Oct, Dental examination Z01.20 [facility] [place] [address] [id number] [address] [place] [phone] Sep, [facility] [place] [address] [id number] [address] [place] [phone] Sep, Migraine with aura and witho ut status migrainosus, not intractable G43.109 and Chronic fatigue R53.82 [facility] [place] [address] [id number] [address] [place] [phone] August, Migraine with aura and witho ut status migrainosus, not intractable G43.109 ; Encounter to establish care Z76.89 and Contact dermatitis, unspecified contact dermatitis type, unspecified trigger L25.9 [facility] [place] [address] [id number] [address] [place] [phone] August, [facility] [place] [address] [id number] [address] [place] [phone] Jul, [facility] [place] [address] [id number] [address] [place] [phone] Jun, Edema of optic nerve H47.10 [facility] [address] [id number] [address] [place] [phone] Jun, Migraine with aura and witho ut status migrainosus, not intractable G43.109 [facility] [place] [address] [id number] [address] [place] [phone] Jun, [facility] [place] [address] [id number] [address] [place] [phone] Jun, Edema of optic nerve H47.10 [facility] [place] [address] [id number] [address] [place] [phone] Jun, Edema of optic nerve H47.10 [facility] [place] [address] [facility] [id number] [address] [place] [phone] 22 Jun, 2017 Edema of optic nerve H47.10 [facility] [place] [address] [facility] [id number] [address] [place] [phone] 19 Jun, 2017 Edema of optic nerve H47.10 [facility] [place] [address] [facility] [id number] [address] [place] [phone] 14 Jun, 2017 [facility] [address] [facility] [id number] [address] [place] [address] [phone] Mar, Dental caries K02.9 [facility] [address] [facility] [id number] [address] [place] [address] [phone] Jan, Dental examination Z01.20 IMMUNIZATIONS No Known [...]
--- OUTSIDE RECORDS SUMMARY | 2019-10-21 09:57 | XMS REPORT ---
Author Author Nhung PIRES Organization [facility] Address [address] [place] [address] Care Team Providers Care Bead Forming Machine Set Up Operator Name Role Phone BALJINDER PIRES Unavailable PROBLEMS Type Condition ICD9-CM Code SNX43-VF Code Onset Dates Condition S tatus SNOMED Code Problem Chronic fatigue R53.82 Active 8422 9001 Problem Migraine with aura and without status migrainosu s, not intractable G43.109 Active 0401215 Problem Edema of optic nerve H47.10 Active [id number] ALLERGIES No Information ENCOUNTERS Encounter Location Date Diagnosis [facility] [address] [facility] [id number] [address] [place] [phone] Nov, Family history of diabetes m ellitus (DM) Z83.3 and Migraine with aura and without status migrainosus, not intractable G43.109 [facility] [address] [facility] [id number] [address] [place] [phone] Nov, [facility] [address] [id number] [address] [place] [address] [id number] Oct, [facility] [address] [id number] [address] [place] [address] [phone] Oct, Dental examination Z01.20 [facility] [address] [id number] [address] [place] [phone] Sep, [facility] [address] [facility] [id number] [address] [place] [phone] Sep, Migraine with aura and witho ut status migrainosus, not intractable G43.109 and Chronic fatigue R53.82 [facility] [address] [facility] [id number] [address] [place] [phone] August, Migraine with aura and witho ut status migrainosus, not intractable G43.109 ; Encounter to establish care Z76.89 and Contact dermatitis, unspecified contact dermatitis type, unspecified trigger L25.9 [facility] [address] [id number] [address] [place] [phone] August, [facility] [address] [id number] [address] [place] [phone] Jul, [facility] [address] [id number] [address] [place] [phone] Jun, Edema of optic nerve H47.10 [facility] [address] [id number] [address] [place] [phone] Jun, Migraine with aura and witho ut status migrainosus, not intractable G43.109 [facility] [address] [id number] [address] [place] [phone] Jun, [facility] [address] [id number] [address] [place] [phone] Jun, Edema of optic nerve H47.10 [facility] [address] [id number] [address] [place] [phone] Jun, Edema of optic nerve H47.10 [facility] [address] [id number] [address] [place] [phone] Jun, Edema of optic nerve H47.10 [facility] [address] [id number] [address] [place] [phone] Jun, Edema of optic nerve H47.10 [facility] [address] [id number] [address] [place] [phone] Jun, [facility] [address] [id number] [address] [place] [address] [id number] Mar, Dental caries K02.9 [facility] [address] [id number] [address] [place] [address] [phone] Jan, Dental examination Z01.20 IMMUNIZATIONS No Known Immunizations SOCIAL HISTORY Never Assessed REASON FOR VISIT Requests return call PLAN OF CARE VITAL SIGNS MEDICATIONS No Known Medications RESULTS No Results PROCEDURES No Known procedures INSTRUCTIONS MEDICATIONS ADMINISTERED No Known Medications MEDICAL (GENERAL) HISTORY Type Description Date Medical History Anemia Medical History Arthritis Medical History Back Trouble Surgical History tonsillectomy
--- OUTSIDE RECORDS SUMMARY | 2019-10-21 09:57 | XMS REPORT ---
Author Author KING Nhung MARLENE [facility] Address [address] [place] [address] Care Team Providers Care Supervisor Decorating Name Role Phone MARLENE CERDA Unavailable PROBLEMS Type Condition ICD9-CM Code UBY90-BM Code Onset Dates Condition S tatus SNOMED Code Problem Dysfunctional uterine bleeding N93.8 Active 90816317 Problem Chronic fatigue R53.82 Active 8422 9001 Problem Migraine with aura and without status migrainosu s, not intractable G43.109 Active 2317289 Problem Edema of optic nerve H47.10 Active 483736357 ALLERGIES Substance Reaction Event Type Date Status Keflex nausea Drug Allergy Nov, Active Amoxicillin anaphylaxis Drug Allergy Nov, Active C-core Unknown Non Drug Allergy Nov, Active ENCOUNTERS Encounter Location Date Diagnosis [facility] [address] [facility] [id number] [address] [place] [phone] Jan, [facility] [address] [id number] [address] [place] [phone] 13 Dec, 2017 Dysfunctional uterine bleedi ng N93.8 [facility] [address] [id number] [address] [place] [phone] 11 Dec, 2017 Dysfunctional uterine bleedi ng N93.8 [facility] [address] [facility] [place] [id number] [address] [place] [phone] 04 Dec, 2017 [facility] [address] [facility] [id number] [address] [place] [phone] Nov, [facility] [address] [id number] [address] [place] [phone] Nov, Family history of diabetes m ellitus (DM) Z83.3 and Migraine with aura and without status migrainosus, not intractable G43.109 [facility] [address] [id number] [address] [place] [phone] Nov, [facility] [address] [id number] [address] [place] [address] [id number] Oct, [facility] [address] [id number] [address] [place] [address] [phone] Oct, Dental examination Z01.20 [facility] [address] [id number] [address] [place] [phone] Sep, [facility] [address] [id number] [address] [place] [phone] Sep, Migraine with aura and witho ut status migrainosus, not intractable G43.109 and Chronic fatigue R53.82 [facility] [address] [facility] [place] [id number] [address] [place] [phone] August, Migraine with aura and witho ut status migrainosus, not intractable G43.109 ; Encounter to establish care Z76.89 and Contact dermatitis, unspecified contact dermatitis type, unspecified trigger L25.9 [facility] [address] [facility] [place] [id number] [address] [place] [phone] August, [facility] [address] [facility] [place] [id number] [address] [place] [phone] Jul, [facility] [address] [facility] [place] [id number] [address] [place] [phone] Jun, Edema of optic nerve H47.10 [facility] [address] [id number] [address] [place] [phone] Jun, Migraine with aura and witho ut status migrainosus, not intractable G43.109 [facility] [address] [facility] [place] [id number] [address] [place] [phone] Jun, [facility] [address] [facility] [place] [id number] [address] [place] [phone] Jun, Edema of optic nerve H47.10 [facility] [address] [facility] [place] [id number] [address] [place] [phone] 23 Jun, 2017 Edema of optic nerve H47.10 [facility] [address] [facility] [place] [id number] [address] [place] [phone] 22 Jun, 2017 Edema of optic nerve H47.10 [facility] [address] [facility] [place] [id number] [address] [place] [phone] 19 Jun, 2017 Edema of optic nerve H47.10 [facility] [address] [id number] [address] [place] [phone] 14 Jun, 2017 [facility] [address] [facility] [id number] [address] [place] [address] [id number] Mar, Dental caries K02.9 [facility] [address] [facility] [id number] [address] [place] [address] [phone] Jan, Dental examination Z01.20 IMMUNIZATIONS No Known Immunizations SOCIAL HISTORY Never Assessed REASON FOR VISIT Testing for Diabetes- pt reports this runs in her family and has never been test ed. Medication review Lucy Green RN PLAN OF CARE Activity Details Follow Up prn Reason: VITAL SIGNS Height 61 in 2017-12-06 Weight 190.3 lbs 2017-12-06 Temperature 98.5 degrees Fahrenheit 2017-12-06 Heart Rate 111 bpm 2017-12-06 Respiratory Rate 20 2017-12-06 BMI 35.95 kg/m2 2017-12-06 Blood pressure systolic 110 mmHg 2017-12-06 Blood pressure diastolic 76 mmHg 2017-12-06 MEDICATIONS Medication Instructions Dosage Frequency Start Date End Date Duration S juaquinus Kjtqsyweoq-XEAU-Abtyofcx 50-325-40 MG Orally 2 times a day 1 cap renee as needed 12h 11 Sep, 2017 Active Clindamycin HCl 150 MG Orally every 6 hrs 2 capsules 6h 7 days Active RESULTS No Results PROCEDURES No Known procedures INSTRUCTIONS MEDICATIONS ADMINISTERED No Known Medications MEDICAL (GENERAL) HISTORY Type Description Date Medical History Anemia Medical History Arthritis Medical History Back Trouble Surgical History tonsillectomy
--- OUTSIDE RECORDS SUMMARY | 2019-10-21 09:57 | XMS REPORT ---
Author Author KING Nhung ROSARIO [facility] Address [address] [place] [address] Care Team Providers Care Soil Analyst Name Role Phone MARLENE CERDA Unavailable PROBLEMS Type Condition ICD9-CM Code [id number] Code Onset Dates Condition S tatus SNOMED Code Problem Dysfunctional uterine bleeding N93.8 Active 11994845 Problem Chronic fatigue R53.82 Active 8422 9001 Problem Migraine with aura and without status migrainosu s, not intractable G43.109 Active 7056473 Problem Edema of optic nerve H47.10 Active [id number] ALLERGIES Substance Reaction Event Type Date Status Keflex nausea Drug Allergy Dec, Active Amoxicillin anaphylaxis Drug Allergy Dec, Active C-core Unknown Non Drug Allergy Dec, Active ENCOUNTERS Encounter Location Date Diagnosis [facility] [address] [facility] [id number] [address] [place] [phone] Jan, [facility] [address] [place] [id number] [address] [place] [phone] Dec, Dysfunctional uterine bleedi ng N93.8 [facility] [address] [place] [place] [id number] [address] [place] [phone] Dec, Dysfunctional uterine bleedi ng N93.8 [facility] [address] [facility] [id number] [address] [place] [phone] Dec, [facility] [address] [facility] [id number] [address] [place] [phone] Nov, [facility] [address] [place] [place] [id number] [address] [place] [phone] 08 Nov, 2017 Family history of diabetes m ellitus (DM) Z83.3 and Migraine with aura and without status migrainosus, not intractable G43.[address] [facility] [address] [id number] [address] [place] [phone] Nov, [facility] [address] [id number] [address] [place] [phone] Oct, [facility] [address] [id number] [address] [place] [address] [phone] Oct, Dental examination Z01.20 [facility] [address] [id number] [address] [place] [phone] Sep, [facility] [address] [id number] [address] [place] [phone] Sep, Migraine with aura and witho ut status migrainosus, not intractable G43.109 and Chronic fatigue R53.82 [facility] [address] [facility] [id number] [address] [place] [phone] August, Migraine with aura and witho ut status migrainosus, not intractable G43.109 ; Encounter to establish care Z76.89 and Contact dermatitis, unspecified contact dermatitis type, unspecified trigger L25.9 [facility] [address] [facility] [id number] [address] [place] [phone] August, [facility] [address] [facility] [id number] [address] [place] [phone] Jul, [facility] [address] [facility] [id number] [address] [place] [phone] Jun, Edema of optic nerve H47.10 [facility] [address] [id number] [address] [place] [phone] Jun, Migraine with aura and witho ut status migrainosus, not intractable G43.109 [facility] [address] [facility] [id number] [address] [place] [phone] Jun, [facility] [address] [facility] [id number] [address] [place] [phone] Jun, Edema of optic nerve H47.10 [facility] [address] [facility] [id number] [address] [place] [phone] 23 Jun, 2017 Edema of optic nerve H47.10 [facility] [address] [facility] [id number] [address] [place] [phone] 22 Jun, 2017 Edema of optic nerve H47.10 [facility] [address] [facility] [id number] [address] [place] [phone] 19 Jun, 2017 Edema of optic nerve H47.10 [facility] [address] [facility] [id number] [address] [place] [phone] 14 Jun, 2017 [facility] [address] [facility] [id number] [address] [place] [address] [phone] Mar, Dental caries K02.9 [facility] [address] [place] [address] [id number] [address] [place] [address] [phone] Jan, Dental examination Z01.20 IMMUNIZATIONS No Known Immunizations SOCIAL HISTORY Never Assessed REASON FOR VISIT 2 day follow up ----LORIennettRRajinder PLAN OF CARE Activity Details Follow Up 4 Weeks Reason:dysfunctional uterine bleeding VITAL SIGNS Height 61 in 2018-01-11 Weight 190 lbs 2018-01-11 Temperature 98.8 degrees Fahrenheit 2018-01-11 Heart Rate 90 bpm 2018-01-11 Respiratory Rate 20 2018-01-11 BMI 35.90 kg/m2 2018-01-11 Blood pressure systolic 92 mmHg 2018-01-11 Blood pressure diastolic 58 mmHg 2018-01-11 MEDICATIONS Medication Instructions Dosage Frequency Start Date End Date Duration S tatus ibuprofen 800 oral TID as needed 1 Active Uzfmmcbbii-BYJG-Sbklizom 50-325-40 MG Orally 2 times a day 1 cap renee as needed 12h Sep, Active Ferrous Sulfate 325 (65 Fe) MG Orally twice a day 1 tablet 12h Dec, 30 day(s) Active Zofran ODT 4 MG Orally every 4 hrs 1 tablet on the tong ue and allow to dissolve as needed 4h Dec, Active Provera 10 mg Orally Once a day 1 tablet with food 24h Dec, Dec, 5 day(s) Active RESULTS Name Result Date Reference Range HEMOGLOBIN (IN HOUSE) 2018-01-11 HEMOGLOBIN 11.3 11.5 - 16 gm/dL Lot # [id number] Exp date 12/22/18 PROCEDURES Procedure Date Ordered Result Body Site HEMOGLOBIN Jan 11, 2018 INSTRUCTIONS MEDICATIONS ADMINISTERED No Known Medications MEDICAL (GENERAL) HISTORY Type Description Date Medical History Anemia Medical History Arthritis Medical History Back Trouble Surgical History tonsillectomy
--- OUTSIDE RECORDS SUMMARY | 2019-10-21 09:57 | XMS REPORT ---
Author Author KING Nhung ROSARIO Organization [facility] [place] Address [address] [place] [address] Care Team Providers Care Cellophane Tester Name Role Phone MARLENE CERDA Unavailable PROBLEMS Type Condition ICD9-CM Code SKJ03-HY Code Onset Dates Condition S tatus SNOMED Code Problem Chronic fatigue R53.82 Active 8422 9001 Problem Migraine with aura and without status migrainosu s, not intractable G43.109 Active 1314898 Problem Edema of optic nerve H47.10 Active [id number] ALLERGIES Substance Reaction Event Type Date Status Keflex nausea Drug Allergy Sep, Active Amoxicillin anaphylaxis Drug Allergy Sep, Active C-core Unknown Non Drug Allergy Sep, Active ENCOUNTERS Encounter Location Date Diagnosis [facility] [place] [address] [place] [id number] [place] [phone] Nov, Family history of diabetes m ellitus (DM) Z83.3 and Migraine with aura and without status migrainosus, not intractable G43.109 [facility] [address] [place] [id number] [address] [place] [phone] Nov, [facility] [address] [place] [id number] [address] [place] [address] [phone] Oct, [facility] [address] [place] [id number] [address] [place] [address] [phone] Oct, Dental examination Z01.20 [facility] [place] [address] [facility] [id number] [address] [place] [phone] Sep, [facility] [place] [address] [place] [id number] [address] [place] [phone] Sep, Migraine with aura and witho ut status migrainosus, not intractable G43.109 and Chronic fatigue R53.82 [facility] [place] [address] [id number] [address] [place] [phone] August, Migraine with aura and witho ut status migrainosus, not intractable G43.109 ; Encounter to establish care Z76.89 and Contact dermatitis, unspecified contact dermatitis type, unspecified trigger L25.9 [facility] [place] [address] [id number] [address] [place] [phone] August, [facility] [place] [address] [id number] [address] [place] [phone] Jul, [facility] [place] [address] [id number] [address] [place] [phone] 30 Jun, 2017 Edema of optic nerve H47.10 [facility] [address] [facility] [id number] [address] [place] [phone] Jun, Migraine with aura and witho ut status migrainosus, not intractable G43.109 [facility] [place] [address] [id number] [address] [place] [phone] Jun, [facility] [place] [address] [id number] [address] [place] [phone] Jun, Edema of optic nerve H47.10 [facility] [place] [address] [facility] [id number] [address] [place] [phone] Jun, Edema of optic nerve H47.10 [facility] [place] [address] [facility] [id number] [address] [place] [phone] Jun, Edema of optic nerve H47.10 [facility] [place] [address] [id number] [address] [place] [phone] Jun, Edema of optic nerve H47.10 [facility] [place] [address] [facility] [id number] [address] [place] [phone] 14 Jun, 2017 [facility] [address] [id number] [address] [place] [address] [phone] Mar, Dental caries K02.9 [facility] [address] [id number] [address] [place] [address] [place] [phone] Jan, Dental examination Z01.20 IMMUNIZATIONS No Known Immunizations SOCIAL HISTORY Never Assessed REASON FOR VISIT migrain medication-TEE murphy PLAN OF CARE Activity Details Follow Up 3 Months Reason:headaches VITAL SIGNS Height 61 in 2017-10-09 Weight 185.5 lbs 2017-10-09 Temperature 99.1 degrees Fahrenheit 2017-10-09 Heart Rate 92 bpm 2017-10-09 Respiratory Rate 20 2017-10-09 BMI 35.05 kg/m2 2017-10-09 Blood pressure systolic 102 mmHg 2017-10-09 Blood pressure diastolic 68 mmHg 2017-10-09 MEDICATIONS Medication Instructions Dosage Frequency Start Date End Date Duration S tatus Topiramate 25 MG Orally Once a day 1 tablet 24h August, 30 day(s) Active Uxnaqsgjpa-RAYB-Rwefbniz 50-325-40 MG Orally 2 times a day 1 cap renee as needed 12h Sep, Active Triamcinolone Acetonide 0.1 % Externally Twice a day 1 appli cation to affected area 12h August, 30 days Active Ondansetron 4 MG Orally every 8 hours, PRN 1 tablet Jun, 05 days Active RESULTS No Results PROCEDURES Procedure Date Ordered Result Body Site COMPLETE CBC W/AUTO DIFF WBC October 09, 2017 COMPREHEN METABOLIC PANEL October 09, 2017 VENIPUNCT, ROUTINE* October 09, 2017 ASSAY THYROID STIM HORMONE October 09, 2017 INSTRUCTIONS MEDICATIONS ADMINISTERED No Known Medications MEDICAL (GENERAL) HISTORY Type Description Date Medical History Anemia Medical History Arthritis Medical History Back Trouble Surgical History tonsillectomy
--- OUTSIDE RECORDS SUMMARY | 2019-10-21 09:57 | XMS REPORT ---
Author Author KING Nhung ROSARIO Organization [facility] Address [address] [place] [address] Care Team Providers Care Poly Operator Name Role Phone MARLENE CERDA Unavailable PROBLEMS Type Condition ICD9-CM Code [id number] Code Onset Dates Condition S tatus SNOMED Code Problem Chronic fatigue R53.82 Active 8422 9001 Problem Migraine with aura and without status migrainosu s, not intractable G43.109 Active 6282075 Problem Edema of optic nerve H47.10 Active [id number] ALLERGIES No Information ENCOUNTERS Encounter Location Date Diagnosis [facility] [address] [place] [id number] [address] [place] [phone] Nov, Family history of diabetes m ellitus (DM) Z83.3 and Migraine with aura and without status migrainosus, not intractable G43.109 [facility] [address] [facility] [id number] [address] [place] [phone] Nov, [facility] [address] [id number] [address] [place] [address] [phone] Oct, [facility] [address] [id number] [address] [place] [address] [phone] Oct, Dental examination Z01.20 [facility] [address] [facility] [id number] [address] [place] [phone] Sep, [facility] [address] [facility] [id number] [address] [place] [phone] Sep, Migraine with aura and witho ut status migrainosus, not intractable G43.109 and Chronic fatigue R53.82 [facility] [address] [facility] [id number] [address] [place] [phone] August, Migraine with aura and witho ut status migrainosus, not intractable G43.109 ; Encounter to establish care Z76.89 and Contact dermatitis, unspecified contact dermatitis type, unspecified trigger L25.9 [facility] [address] [id number] [address] [place] [phone] August, [facility] [address] [id number] [address] [place] [phone] Jul, [facility] [address] [id number] [address] [place] [phone] Jun, Edema of optic nerve H47.10 [facility] [address] [id number] [address] [place] [phone] Jun, Migraine with aura and witho ut status migrainosus, not intractable G43.109 [facility] [address] [id number] [address] [place] [phone] Jun, [facility] [address] [id number] [address] [place] [phone] Jun, Edema of optic nerve H47.10 [facility] [address] [id number] [address] [place] [phone] Jun, Edema of optic nerve H47.10 [facility] [address] [id number] [address] [place] [phone] Jun, Edema of optic nerve H47.10 [facility] [address] [id number] [address] [place] [phone] Jun, Edema of optic nerve H47.10 [facility] [address] [id number] [address] [place] [phone] Jun, [facility] [address] [id number] [address] [place] [address] [phone] Mar, Dental caries K02.9 [facility] [address] [id number] [address] [place] [address] [phone] Jan, Dental examination Z01.20 IMMUNIZATIONS No Known Immunizations SOCIAL HISTORY Never Assessed REASON FOR VISIT medication change PLAN OF CARE VITAL SIGNS MEDICATIONS No Known Medications RESULTS No Results PROCEDURES No Known procedures INSTRUCTIONS MEDICATIONS ADMINISTERED No Known Medications MEDICAL (GENERAL) HISTORY Type Description Date Medical History Anemia Medical History Arthritis Medical History Back Trouble Surgical History tonsillectomy
--- OUTSIDE RECORDS SUMMARY | 2019-10-21 09:57 | XMS REPORT ---
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 Active [id number] ALLERGIES No Information ENCOUNTERS Encounter Location Date Diagnosis [facility] [address] [id number] [address] [place] [address] [phone] Oct, [facility] [address] [facility] [id number] [address] [place] [phone] Sep, [facility] [address] [facility] [id number] [address] [place] [phone] Sep, Migraine with aura and witho ut status migrainosus, not intractable G43.109 and Chronic fatigue R53.82 [facility] [address] [facility] [id number] [address] [place] [phone] August, Migraine with aura and witho ut status migrainosus, not intractable G43.109 ; Encounter to establish care Z76.89 and Contact dermatitis, unspecified contact dermatitis type, unspecified trigger L25.9 [facility] [address] [facility] [id number] [address] [place] [phone] August, [facility] [address] [facility] [id number] [address] [place] [phone] Jul, [facility] [address] [facility] [id number] [address] [place] [phone] Jun, Edema of optic nerve H47.10 [facility] [address] [id number] [address] [place] [phone] Jun, Migraine with aura and witho ut status migrainosus, not intractable G43.109 [facility] [address] [id number] [address] [place] [phone] 28 Jun, 2017 [facility] [address] [id number] [address] [place] [phone] 27 Jun, 2017 Edema of optic nerve H47.10 [facility] [address] [id number] [address] [place] [phone] 23 Jun, 2017 Edema of optic nerve H47.10 [facility] [address] [id number] [address] [place] [phone] 22 Jun, 2017 Edema of optic nerve H47.10 [facility] [address] [id number] [address] [place] [phone] 19 Jun, 2017 Edema of optic nerve H47.10 [facility] [address] [id number] [address] [place] [phone] 14 Jun, 2017 [facility] [id number] [place] [address] [phone] Mar, Dental caries K02.9 [facility] [address] [facility] [id number] [address] [place] [address] [phone] Jan, Dental examination Z01.20 IMMUNIZATIONS No Known Immunizations SOCIAL HISTORY Never Assessed REASON FOR VISIT Lab (walk-in) PLAN OF CARE VITAL SIGNS MEDICATIONS Unknown Medications RESULTS No Results PROCEDURES Procedure Date Ordered Result Body Site PROTHROMBIN TIME July 28, 2017 VENIPUNCT, ROUTINE* July 28, 2017 INSTRUCTIONS MEDICATIONS ADMINISTERED No Known Medications MEDICAL (GENERAL) HISTORY Type Description Date Medical History Anemia Medical History Arthritis Medical History Back Trouble Surgical History tonsillectomy
--- OUTSIDE RECORDS SUMMARY | 2019-10-21 09:57 | XMS REPORT ---
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 Active 327141740 ALLERGIES No Information ENCOUNTERS Encounter Location Date Diagnosis [facility] [address] [phone] 16 Jan, 2018 [facility] [address] [id number] [address] [place] [phone] 13 Dec, 2017 Dysfunctional uterine bleedi ng N93.8 [facility] [address] [id number] [address] [place] [phone] Dec, Dysfunctional uterine bleedi ng N93.8 [facility] [address] [id number] [address] [place] [phone] Dec, [facility] [address] [id number] [address] [place] [phone] Nov, [facility] [address] [id number] [address] [place] [phone] Nov, Family history of diabetes alyce linder (DM) Z83.3 and Migraine with aura and without status migrainosus, not intractable G43.109 [facility] [address] [facility] [id number] [address] [place] [phone] Nov, [facility] [address] [id number] [address] [place] [phone] Oct, [facility] [address] [id number] [address] [place] [phone] Oct, Dental examination Z01.20 [facility] [address] [id number] [address] [place] [phone] Sep, [facility] [address] [id number] [address] [place] [phone] Sep, Migraine with aura and witho ut status migrainosus, not intractable G43.109 and Chronic fatigue R53.82 [facility] [address] [id number] [address] [place] [phone] August, Migraine with aura and witho ut status migrainosus, not intractable G43.109 ; Encounter to establish care Z76.89 and Contact dermatitis, unspecified contact dermatitis type, unspecified trigger L25.9 [facility] [address] [id number] [address] [place] [phone] August, [facility] [address] [id number] [address] [place] [phone] Jul, [facility] [address] [id number] [address] [place] [phone] Jun, Edema of optic nerve H47.10 [facility] [address] [id number] [address] [place] [phone] Jun, Migraine with aura and witho ut status migrainosus, not intractable G43.109 [facility] [address] [id number] [address] [place] [phone] Jun, [facility] [address] [id number] [address] [place] [phone] Jun, Edema of optic nerve H47.10 [facility] [address] [id number] [address] [place] [phone] Jun, Edema of optic nerve H47.10 [facility] [address] [facility] [id number] [address] [place] [phone] 22 Jun, 2017 Edema of optic nerve H47.10 [facility] [address] [facility] [id number] [address] [place] [phone] 19 Jun, 2017 Edema of optic nerve H47.10 [facility] [address] [facility] [id number] [address] [place] [phone] 14 Jun, 2017 [facility] [address] [facility] [id number] [address] [place] [phone] Mar, Dental caries K02.9 [facility] [address] [facility] [id number] [address] [place] [phone] Jan, Dental examination Z01.20 IMMUNIZATIONS No Known [...]
--- OUTSIDE RECORDS SUMMARY | 2019-10-21 09:57 | XMS REPORT ---
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 Active 466061528 ALLERGIES No Information ENCOUNTERS Encounter Location Date Diagnosis [facility] [address] [facility] [id number] [address] [place] [phone] 13 Dec, 2017 [facility] [address] [id number] [address] [place] [phone] Dec, Dysfunctional uterine bleedi ng N93.8 [facility] [address] [id number] [address] [place] [phone] 04 Dec, 2017 [facility] [address] [id number] [address] [place] [phone] Nov, [facility] [address] [id number] [address] [place] [phone] Nov, Family history of diabetes m ellitus (DM) Z83.3 and Migraine with aura and without status migrainosus, not intractable G43.109 [facility] [address] [facility] [id number] [address] [place] [phone] Nov, [facility] [address] [id number] [address] [place] [phone] Oct, [facility] [address] [id number] [address] [place] [address] [phone] Oct, Dental examination Z01.20 [facility] [address] [id number] [address] [place] [phone] Sep, [facility] [address] [facility] [id number] [address] [place] [phone] Sep, Migraine with aura and witho ut status migrainosus, not intractable G43.109 and Chronic fatigue R53.82 [facility] [address] [facility] [id number] [address] [place] [phone] August, Migraine with aura and witho ut status migrainosus, not intractable G43.109 ; Encounter to establish care Z76.89 and Contact dermatitis, unspecified contact dermatitis type, unspecified trigger L25.9 [place] [address] [facility] [id number] [address] [place] [phone] August, [facility] [address] [facility] [id number] [address] [place] [phone] Jul, [facility] [address] [facility] [id number] [address] [place] [phone] Jun, Edema of optic nerve H47.10 [facility] [address] [facility] [id number] [address] [place] [phone] Jun, Migraine with aura and witho ut status migrainosus, not intractable G43.109 [facility] [address] [id number] [address] [place] [phone] Jun, [facility] [address] [facility] [id number] [address] [place] [phone] Jun, Edema of optic nerve H47.10 [place] [address] [id number] [address] [place] [phone] Jun, Edema of optic nerve H47.10 [facility] [address] [facility] [id number] [address] [place] [phone] Jun, Edema of optic nerve H47.10 [facility] [address] [facility] [id number] [address] [place] [phone] Jun, Edema of optic nerve H47.10 [facility] [address] [id number] [address] [place] [address] Jun, [facility] [address] [facility] [id number] [address] [place] [phone] Mar, Dental caries K02.9 [facility] [address] [facility] [id number] [place] [phone] Jan, Dental examination Z01.20 IMMUNIZATIONS No Known Immunizations SOCIAL HISTORY Never Assessed REASON FOR VISIT Rx Change PLAN OF CARE VITAL SIGNS MEDICATIONS Unknown Medications RESULTS No Results PROCEDURES No Known procedures INSTRUCTIONS MEDICATIONS ADMINISTERED No Known Medications MEDICAL (GENERAL) HISTORY Type Description Date Medical History Anemia Medical History Arthritis Medical History Back Trouble Surgical History tonsillectomy
--- OUTSIDE RECORDS SUMMARY | 2019-10-21 09:57 | XMS REPORT ---
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 Active 455849094 ALLERGIES Substance Reaction Event Type Date Status Penicillin V Potassium Unknown Drug Allergy Jan, Activ e Keflex nausea Drug Allergy Jan, Active Amoxicillin anaphylaxis Drug Allergy Jan, Active C-core Unknown Non Drug Allergy Jan, Active ENCOUNTERS Encounter Location Date Diagnosis [facility] [address] [facility] [id number] [address] [place] [phone] Jan, Dysfunctional uterine bleedi ng N93.8 and Migraine with aura and without status migrainosus, not intractable G43.109 [facility] [address] [facility] [id number] [address] [place] [phone] Jan, [facility] [address] [facility] [id number] [address] [place] [phone] Dec, Dysfunctional uterine bleedi ng N93.8 [facility] [address] [facility] [id number] [address] [place] [phone] Dec, Dysfunctional uterine bleedi ng N93.8 [facility] [address] [facility] [id number] [address] [place] [phone] Dec, [facility] [address] [facility] [id number] [address] [place] [phone] Nov, [facility] [address] [id number] [address] [place] [phone] Nov, Family history of diabetes m ellitus (DM) Z83.3 and Migraine with aura and without status migrainosus, not intractable G43.109 [facility] [address] [id number] [address] [place] [phone] Nov, [facility] [address] [id number] [address] [place] [phone] Oct, [facility] [address] [id number] [address] [place] [phone] Oct, Dental examination Z01.20 [facility] [address] [id number] [address] [place] [phone] Sep, [facility] [address] [id number] [address] [place] [phone] Sep, Migraine with aura and witho ut status migrainosus, not intractable G43.109 and Chronic fatigue R53.82 [facility] [address] [id number] [address] [place] [phone] August, Migraine with aura and witho ut status migrainosus, not intractable G43.109 ; [facility]counter [facility] Z76.89 and Contact dermatitis, unspecified contact dermatitis type, unspecified trigger L25.9 [facility] [address] [id number] [address] [place] [phone] August, [facility] [address] [id number] [address] [place] [phone] Jul, [facility] [address] [id number] [address] [place] [phone] Jun, Edema of optic nerve H47.10 [facility] [address] [id number] [address] [place] [phone] Jun, Migraine with aura and witho ut status migrainosus, not intractable G43.109 [facility] [address] [id number] [address] [place] [phone] 28 Jun, 2017 [facility] [address] [id number] [address] [place] [phone] Jun, Edema of optic nerve H47.10 [facility] [address] [id number] [address] [place] [phone] Jun, Edema of optic nerve H47.10 [facility] [address] [id number] [address] [place] [phone] Jun, Edema of optic nerve H47.10 [facility] [address] [id number] [address] [place] [phone] 19 Jun, 2017 Edema of optic nerve H47.10 [facility] [address] [id number] [address] [place] [phone] 14 Jun, 2017 [facility] [address] [id number] [address] [place] [phone] Mar, Dental caries K02.9 [facility] [address] [id number] [address] [place] [address] [phone] Jan, Dental examination Z01.20 IMMUNIZATIONS No Known Immunizations SOCIAL HISTORY Never Assessed REASON FOR VISIT Blood Level F/U Castillo Foote PLAN OF CARE Activity Details Follow Up 6 Months Reason:[facility] VITAL SIGNS Height 61 in 2018-02-15 Weight 189.8 lbs 2018-02-15 Temperature 97.3 degrees Fahrenheit 2018-02-15 Heart Rate 91 bpm 2018-02-15 Respiratory Rate 20 2018-02-15 BMI 35.86 kg/m2 2018-02-15 Blood pressure systolic 122 mmHg 2018-02-15 Blood pressure diastolic 68 mmHg 2018-02-15 MEDICATIONS Medication Instructions Dosage Frequency Start Date End Date Duration S suellen Lane ODT 4 MG Orally every 4 hrs 1 tablet on the tong ue and allow to dissolve as needed 4h 11 Dec, 2017 Active ibuprofen 800 mg oral TID as needed 1 tab Active Nhqwaenips-FTZU-Hzckqgxu 50-325-40 MG Orally 2 times a day 1 cap renee as needed 12h 11 Sep, 2017 Active Ferrous Sulfate 325 (65 Fe) MG Orally twice a day 1 tablet 12h 11 Dec, 2017 30 days Active RESULTS No Results PROCEDURES No Known procedures INSTRUCTIONS MEDICATIONS ADMINISTERED No Known Medications MEDICAL (GENERAL) HISTORY Type Description Date Medical History Anemia Medical History Arthritis Medical History Back Trouble Surgical History tonsillectomy
--- OUTSIDE RECORDS SUMMARY | 2019-10-21 09:57 | XMS REPORT ---
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 Active 550565165 ALLERGIES Substance Reaction Event Type Date Status Keflex nausea Drug Allergy Oct, Active Amoxicillin anaphylaxis Drug Allergy Oct, Active C-core Unknown Non Drug Allergy Oct, Active ENCOUNTERS Encounter Location Date Diagnosis [facility] [address] [place] [id number] [address] [place] [phone] Jan, [facility] [address] [facility] [id number] [address] [place] [phone] Dec, Dysfunctional uterine bleedi ng N93.8 [facility] [address] [facility] [id number] [address] [place] [phone] Dec, Dysfunctional uterine bleedi ng N93.8 [facility] [address] [facility] [id number] [address] [place] [phone] Dec, [facility] [address] [facility] [id number] [address] [place] [phone] Nov, [facility] [address] [place] [id number] [address] [place] [phone] 08 Nov, 2017 Family history of diabetes m kailash (DM) Z83.3 and Migraine with aura and without status migrainosus, not intractable G43.109 [facility] [address] [facility] [id number] [address] [place] [phone] Nov, [facility] [address] [id number] [place] [phone] Oct, [facility] [address] [id number] [address] [place] [phone] Oct, Dental examination Z01.20 [facility] [address] [id number] [address] [place] [phone] Sep, [facility] [address] [id number] [address] [place] [phone] Sep, Migraine with aura and witho ut status migrainosus, not intractable G43.109 and Chronic fatigue R53.82 [facility] [address] [facility] [id number] [address] [place] [phone] August, Migraine with aura and witho ut status migrainosus, not intractable G43.109 ; Encounter to establish care Z76.89 and Contact dermatitis, unspecified contact dermatitis type, unspecified trigger L25.9 [facility] [address] [facility] [id number] [address] [place] [phone] August, [facility] [address] [facility] [id number] [address] [place] [phone] Jul, [facility] [address] [facility] [id number] [address] [place] [phone] Jun, Edema of optic nerve H47.10 [facility] [address] [id number] [address] [place] [phone] Jun, Migraine with aura and witho ut status migrainosus, not intractable G43.109 [facility] [address] [id number] [address] [place] [phone] Jun, [facility] [address] [facility] [id number] [address] [place] [phone] Jun, Edema of optic nerve H47.10 [facility] [address] [facility] [id number] [address] [place] [phone] Jun, Edema of optic nerve H47.10 [facility] [address] [facility] [id number] [address] [place] [phone] Jun, Edema of optic nerve H47.10 [facility] [address] [id number] [address] [place] [phone] Jun, Edema of optic nerve H47.10 [facility] [address] [facility] [id number] [address] [place] [phone] 14 Jun, 2017 [facility] [address] [id number] [address] [place] [address] [id number] Mar, Dental caries K02.9 [facility] [address] [id number] [address] [place] [address] [phone] Jan, Dental examination Z01.20 IMMUNIZATIONS No Known Immunizations SOCIAL HISTORY Never Assessed REASON FOR VISIT TE #19 PLAN OF CARE Activity Details Follow Up prn Reason:#19-te VITAL SIGNS Height 61 in 2017-11-24 Blood pressure systolic 133 mmHg 2017-11-24 Blood pressure diastolic 93 mmHg 2017-11-24 MEDICATIONS Medication Instructions Dosage Frequency Start Date End Date Duration S tatus Yjrbdpmwug-XVPS-Qiazdeqb 50-325-40 MG Orally 2 times a day 1 cap renee as needed 12h Sep, Active Clindamycin HCl 150 MG Orally every 6 hrs 2 capsules 6h 7 days Active Topiramate 25 MG Orally Once a day 1 tablet 24h August, 30 day(s) Not-Taking Ondansetron 4 MG Orally every 8 hours, PRN 1 tablet Jun, 05 days Not-Taking Triamcinolone Acetonide 0.1 % Externally Twice a day 1 appli cation to affected area 12h August, 30 days Not-Taking RESULTS No Results PROCEDURES Procedure Date Ordered Result Body Site INTRAORL-PERIAPICAL 1 FILM [id number] November 24, 2017 BITEWING - SINGLE FILM November 24, 2017 INSTRUCTIONS MEDICATIONS ADMINISTERED No Known Medications MEDICAL (GENERAL) HISTORY Type Description Date Medical History Anemia Medical History Arthritis Medical History Back Trouble Surgical History tonsillectomy
--- OUTSIDE RECORDS SUMMARY | 2019-10-21 09:57 | XMS REPORT ---
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 Active 549001388 ALLERGIES No Information ENCOUNTERS Encounter Location Date Diagnosis [facility] [address] [phone] 16 Jan, 2018 [facility] [address] [place] [id number] [address] [place] [phone] 13 Dec, 2017 Dysfunctional uterine bleedi ng N93.8 [facility] [id number] [place] [phone] Dec, Dysfunctional uterine bleedi ng N93.8 [facility] [address] [id number] [address] [place] [phone] Dec, [facility] [address] [id number] [address] [place] [phone] Nov, [facility] [id number] [place] [phone] Nov, Family history of diabetes alyce linder (DM) Z83.3 and Migraine with aura and without status migrainosus, not intractable G43.109 [facility] [address] [facility] [id number] [address] [place] [phone] Nov, [facility] [address] [id number] [address] [place] [phone] Oct, [facility] [address] [id number] [address] [place] [address] [phone] Oct, Dental examination Z01.20 [facility] [address] [id number] [address] [place] [phone] Sep, [facility] [address] [id number] [address] [place] [phone] Sep, Migraine with aura and witho ut status migrainosus, not intractable G43.109 and Chronic fatigue R53.82 [facility] [address] [id number] [address] [place] [phone] August, Migraine with aura and witho ut status migrainosus, not intractable G43.109 ; Encounter to establish care Z76.89 and Contact dermatitis, unspecified contact dermatitis type, unspecified trigger L25.9 [facility] [address] [id number] [address] [place] [phone] August, [facility] [address] [id number] [address] [place] [phone] Jul, [facility] [address] [id number] [address] [place] [phone] Jun, Edema of optic nerve H47.10 [facility] [address] [id number] [address] [place] [phone] Jun, Migraine with aura and witho ut status migrainosus, not intractable G43.109 [facility] [address] [id number] [address] [place] [phone] Jun, [facility] [address] [id number] [address] [place] [phone] Jun, Edema of optic nerve H47.10 [facility] [address] [id number] [address] [place] [phone] Jun, Edema of optic nerve H47.10 [facility] [address] [facility] [id number] [address] [place] [id number] 22 Jun, 2017 Edema of optic nerve H47.10 [facility] [address] [facility] [id number] [address] [place] [phone] 19 Jun, 2017 Edema of optic nerve H47.10 [facility] [address] [facility] [id number] [address] [place] [phone] 14 Jun, 2017 [facility] [address] [facility] [id number] [address] [place] [id number] Mar, Dental caries K02.9 [facility] [address] [facility] [id number] [address] [place] [phone] Jan, Dental examination Z01.20 IMMUNIZATIONS No Known Immunizations SOCIAL HISTORY Never Assessed REASON FOR VISIT Unknown PLAN OF CARE VITAL SIGNS MEDICATIONS Unknown Medications RESULTS No Results PROCEDURES No Known procedures INSTRUCTIONS MEDICATIONS ADMINISTERED No Known Medications MEDICAL (GENERAL) HISTORY Type Description Date Medical History Anemia Medical History Arthritis Medical History Back Trouble Surgical History tonsillectomy
--- OUTSIDE RECORDS SUMMARY | 2019-10-21 09:57 | XMS REPORT ---
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 Active 558925049 ALLERGIES Substance Reaction Event Type Date Status Keflex nausea Drug Allergy Dec, Active Amoxicillin anaphylaxis Drug Allergy Dec, Active C-core Unknown Non Drug Allergy Dec, Active ENCOUNTERS Encounter Location Date Diagnosis [facility] [address] [facility] [id number] [address] [place] [phone] Jan, [facility] [address] [place] [id number] [address] [place] [phone] 13 Dec, 2017 Dysfunctional uterine bleedi ng N93.8 [facility] [address] [place] [id number] [address] [place] [phone] Dec, Dysfunctional uterine bleedi ng N93.8 [facility] [address] [facility] [id number] [address] [place] [phone] 04 Dec, 2017 [facility] [address] [facility] [id number] [address] [place] [phone] Nov, [facility] [address] [place] [address] [id number] [address] [place] [phone] 08 Nov, 2017 Family history of diabetes m ellitus (DM) Z83.3 and Migraine with aura and without status migrainosus, not intractable G43.109 [facility] [address] [id number] [address] [place] [phone] Nov, [facility] [address] [id number] [address] [place] [address] [id number] Oct, [facility] [address] [id number] [address] [place] [phone] Oct, Dental examination Z01.20 [facility] [address] [id number] [address] [place] [phone] Sep, [facility] [address] [id number] [address] [place] [phone] Sep, Migraine with aura and witho ut status migrainosus, not intractable G43.109 and Chronic fatigue R53.82 [facility] [address] [facility] [id number] [address] [place] [phone] August, Migraine with aura and witho ut status migrainosus, not intractable G43.109 ; Encounter to establish care Z76.89 and Contact dermatitis, unspecified contact dermatitis type, unspecified trigger L25.9 [facility] [address] [facility] [id number] [address] [place] [phone] August, [facility] [address] [facility] [id number] [address] [place] [phone] Jul, [facility] [address] [facility] [id number] [address] [place] [phone] Jun, Edema of optic nerve H47.10 [facility] [address] [id number] [address] [place] [phone] Jun, Migraine with aura and witho ut status migrainosus, not intractable G43.109 [facility] [address] [facility] [id number] [address] [place] [phone] Jun, [facility] [address] [facility] [id number] [address] [place] [phone] Jun, Edema of optic nerve H47.10 [facility] [address] [facility] [id number] [address] [place] [phone] Jun, Edema of optic nerve H47.10 [facility] [address] [facility] [id number] [address] [place] [phone] Jun, Edema of optic nerve H47.10 [facility] [address] [facility] [id number] [address] [place] [phone] Jun, Edema of optic nerve H47.10 [facility] [address] [facility] [id number] [address] [place] [phone] Jun, [facility] [address] [facility] [id number] [address] [place] [address] [id number] Mar, Dental caries K02.9 [facility] [address] [facility] [id number] [address] [place] [phone] Jan, Dental examination Z01.20 IMMUNIZATIONS No Known Immunizations SOCIAL HISTORY Never Assessed REASON FOR VISIT Vaginal Bleeding- Pt states that she was in the ER two days ago for heavy bleedi ng. She states that the bleeding has not lightened up at all and she is in sever e pain. She states that she is going through a pad every 30 minutes. TEE Latham PLAN OF CARE Activity Details Follow Up 2 days Reason:vaginal bleedi ng VITAL SIGNS Height 61 in 2018-01-09 Weight 189.6 lbs 2018-01-09 Temperature 98.7 degrees Fahrenheit 2018-01-09 Heart Rate 83 bpm 2018-01-09 Respiratory Rate 18 2018-01-09 BMI 35.82 kg/m2 2018-01-09 Blood pressure systolic 122 mmHg 2018-01-09 Blood pressure diastolic 84 mmHg 2018-01-09 MEDICATIONS Medication Instructions Dosage Frequency Start Date End Date Duration S tatus Provera 10 mg Orally Once a day 1 tablet with food 24h Dec, Dec, 5 day(s) Active Aqxdxxpkdn-GZGE-Wyxvwfjn 50-325-40 MG Orally 2 times a day 1 cap renee as needed 12h Sep, Active Zofran ODT 4 MG Orally every 4 hrs 1 tablet on the tong ue and allow to dissolve as needed 4h Dec, Active Ferrous Sulfate 325 (65 Fe) MG Orally twice a day 1 tablet 12h 11 Dec, 2017 30 day(s) Active ibuprofen 800 oral TID as needed 1 Active RESULTS Name Result Date Reference Range HEMOGLOBIN (IN HOUSE) 2018-01-09 HEMOGLOBIN 9.7 11.5 - 16 gm/dL Lot # [id number] Exp date 12/22/2018 PROCEDURES Procedure Date Ordered Result Body Site HEMOGLOBIN Jan 09, 2018 INSTRUCTIONS MEDICATIONS ADMINISTERED No Known Medications MEDICAL (GENERAL) HISTORY Type Description Date Medical History Anemia Medical History Arthritis Medical History Back Trouble Surgical History tonsillectomy
--- OUTSIDE RECORDS SUMMARY | 2019-10-21 09:57 | XMS REPORT ---
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 Active [id number] ALLERGIES No Information ENCOUNTERS Encounter Location Date Diagnosis [facility] [address] [id number] [address] [place] [id number] Oct, [facility] [address] [id number] [address] [place] [phone] Sep, [facility] [address] [id number] [address] [place] [phone] Sep, Migraine with aura and witho ut status migrainosus, not intractable G43.109 and Chronic fatigue R53.82 [facility] [address] [id number] [address] [place] [phone] August, Migraine with aura and witho ut status migrainosus, not intractable G43.109 ; Encounter to establish care Z76.89 and Contact dermatitis, unspecified contact dermatitis type, unspecified trigger L25.9 [facility] [address] [id number] [address] [place] [phone] August, [facility] [address] [id number] [address] [place] [phone] Jul, [facility] [address] [id number] [address] [place] [phone] Jun, Edema of optic nerve H47.10 [facility] [address] [id number] [address] [place] [phone] Jun, Migraine with aura and witho ut status migrainosus, not intractable G43.109 [facility] [address] [id number] [address] [place] [phone] 28 Jun, 2017 [facility] [address] [id number] [address] [place] [phone] Jun, Edema of optic nerve H47.10 [facility] [address] [id number] [address] [place] [phone] Jun, Edema of optic nerve H47.10 [facility] [address] [id number] [address] [place] [phone] 22 Jun, 2017 Edema of optic nerve H47.10 [facility] [address] [id number] [address] [place] [phone] Jun, Edema of optic nerve H47.10 [facility] [address] [id number] [address] [place] [phone] 14 Jun, 2017 [facility] [id number] [place] [phone] Mar, Dental caries K02.9 [facility] [address] [facility] [id number] [address] [place] [address] [phone] Jan, Dental examination Z01.20 IMMUNIZATIONS No Known Immunizations SOCIAL HISTORY Never Assessed REASON FOR VISIT Lab orders PLAN OF CARE VITAL SIGNS MEDICATIONS Unknown Medications RESULTS No Results PROCEDURES No Known procedures INSTRUCTIONS MEDICATIONS ADMINISTERED No Known Medications MEDICAL (GENERAL) HISTORY Type Description Date Medical History Anemia Medical History Arthritis Medical History Back Trouble Surgical History tonsillectomy
--- OUTSIDE RECORDS SUMMARY | 2019-10-21 09:58 | XMS REPORT ---
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 Active 595094637 ALLERGIES Substance Reaction Event Type Date Status Keflex nausea Drug Allergy Jun, Active Amoxicillin anaphylaxis Drug Allergy Jun, Active C-core Unknown Non Drug Allergy Jun, Active ENCOUNTERS Encounter Location Date Diagnosis [facility] [address] [id number] [address] [place] [address] [id number] Oct, [facility] [address] [phone] Sep, [facility] [address] [phone] Sep, Migraine with aura and witho ut status migrainosus, not intractable G43.109 and Chronic fatigue R53.82 [facility] [address] [id number] [address] [place] [phone] August, Migraine with aura and witho ut status migrainosus, not intractable G43.109 ; Encounter to establish care Z76.89 and Contact dermatitis, unspecified contact dermatitis type, unspecified trigger L25.9 [facility] [address] [id number] [address] [place] [phone] August, [facility] [address] [id number] [address] [place] [phone] Jul, [place] [address] [id number] [address] [place] [phone] 30 Jun, 2017 Edema of optic nerve H47.10 [facility] [address] [id number] [address] [place] [phone] Jun, Migraine with aura and witho ut status migrainosus, not intractable G43.109 [facility] [address] [id number] [address] [place] [phone] Jun, [facility] [address] [id number] [address] [place] [phone] Jun, Edema of optic nerve H47.10 [facility] [address] [id number] [address] [place] [phone] Jun, Edema of optic nerve H47.10 [facility] [address] [id number] [address] [place] [phone] Jun, Edema of optic nerve H47.10 [facility] [address] [id number] [address] [place] [phone] Jun, Edema of optic nerve H47.10 [facility] [address] [id number] [address] [place] [phone] Jun, [facility] [address] [facility] [id number] [address] [place] [address] [phone] Mar, Dental caries K02.9 [facility] [address] [place] [address] [id number] [address] [place] [address] [id number] Jan, Dental examination Z01.20 IMMUNIZATIONS No Known Immunizations SOCIAL HISTORY Never Assessed REASON FOR VISIT Hospital f/u- states she had an MRI last week in ER because her Eye dr told her she had swollen optic nerve- Gladys Marie RN, PHQ2, AUDIT C PLAN OF CARE Activity Details Follow Up Will discuss with oph call a fter lab Reason: VITAL SIGNS Height 61 in 2017-07-17 Weight 188 lbs 2017-07-17 Temperature 98.0 degrees Fahrenheit 2017-07-17 Heart Rate 88 bpm 2017-07-17 Respiratory Rate 18 2017-07-17 BMI 35.52 kg/m2 2017-07-17 Blood pressure systolic 132 mmHg 2017-07-17 Blood pressure diastolic 84 mmHg 2017-07-17 MEDICATIONS Unknown Medications RESULTS Name Result Date Reference Range CRP 2017-07-17 C-REACTIVE PROTEIN 18.8 <8.0 PROCEDURES Procedure Date Ordered Result Body Site C-REACTIVE PROTEIN July 17, 2017 INSTRUCTIONS MEDICATIONS ADMINISTERED No Known Medications MEDICAL (GENERAL) HISTORY Type Description Date Medical History Anemia Medical History Arthritis Medical History Back Trouble Surgical History tonsillectomy
--- OUTSIDE RECORDS SUMMARY | 2019-10-21 09:58 | XMS REPORT | Continuity of Care Document ---
Author Organization Unknown Address Unknown Phone Unavailable Allergies Active Description Code Type Severity Reaction Onset Reported/Identified Relationship to Patient Clinical Status Yes amoxicillin [id number] Drug Aller gy Unknown N/A 07/12/2017 Yes cefaclor [id number] Drug Allergy Unknown N/A 07/12/2017 Yes meloxicam [id number] Drug Allergy Unknown N/A 07/12/2017 Yes Penicillins [id number] Drug Aller gy Unknown N/A 07/12/2017 Yes meloxicam [id number] Drug Allergy Severe "BODY FEELS LIK 10/16/2019 Yes amoxicillin [id number] Drug Aller gy Unknown FROM CHILDHOOD 10/16/2019 Yes cefaclor [id number] Drug Allergy Unknown FROM CHILDHOOD 10/16/2019 Yes Penicillins [id number] Drug Aller gy Unknown FROM CHILDHOOD 10/16/2019 Medications There is no data. Problems Date Dx Coded Attending Type Code Diagnosis Diagnosed By 03/30/1442 CRISTINE MERCER DO Ot Z01.818 ENCOUNTER FOR OTHER PREPROCEDURAL EXAMIN 03/30/1442 CRISTINE MERCER DO Ot Z11.59 ENCOUNTER FOR SCREENING FOR OTHER VIRAL 07/12/2017 REGULO BLAKELY MD Ot F17.210 NICOTINE DEPENDENCE, CIGARETTES, UNCOMPL 07/12/2017 REGULO BLAKELY MD Ot H47.091 OT DISORDERS OF OPTIC NERVE, NEC, RIGHT 07/12/2017 REGULO BLAKELY MD Ot H47. 10 UNSPECIFIED PAPILLEDEMA 07/12/2017 REGULO BLAKELY MD Ot Z88. 0 ALLERGY STATUS TO PENICILLIN 07/12/2017 REGULO BLAKELY MD Ot Z88. 1 ALLERGY STATUS TO OTHER ANTIBIOTIC AGENT 07/12/2017 REGULO LBAKELY MD Ot Z88. 6 ALLERGY STATUS TO ANALGESIC AGENT STATUS 07/14/2017 REGULO BLAKELY MD Ot F17.210 NICOTINE DEPENDENCE, CIGARETTES, UNCOMPL 07/14/2017 REGULO BLAKELY MD Ot H47.091 OTH DISORDERS OF OPTIC NERVE, NEC, RIGHT 07/14/2017 REGULO BLAKELY MD Ot H47. 10 UNSPECIFIED PAPILLEDEMA 07/14/2017 REGULO BLAKELY MD Ot Z88. 0 ALLERGY STATUS TO PENICILLIN 07/14/2017 REGULO BLAKELY MD Ot Z88. 1 ALLERGY STATUS TO OTHER ANTIBIOTIC AGENT 07/14/2017 REGULO BLAKELY MD Ot Z88. 6 ALLERGY STATUS TO ANALGESIC AGENT STATUS 07/14/2017 REGULO BLAKELY MD Ot F17.210 NICOTINE DEPENDENCE, CIGARETTES, UNCOMPL 07/14/2017 REGULO BLAKELY MD Ot H47.091 OTH DISORDERS OF OPTIC NERVE, NEC, RIGHT 07/14/2017 REGULO BLAKELY MD Ot H47. 10 UNSPECIFIED PAPILLEDEMA 07/14/2017 REGULO BLAKELY MD Ot Z88. 0 ALLERGY STATUS TO PENICILLIN 07/14/2017 REGULO BLAKELY MD Ot Z88. 1 ALLERGY STATUS TO OTHER ANTIBIOTIC AGENT 07/14/2017 REGULO BLAKELY MD Ot Z88. 6 ALLERGY STATUS TO ANALGESIC AGENT STATUS 08/04/2017 BALJINDER PIRES MD Ot H47.10 UNSPECIFIED PAPILLEDEMA 08/04/2017 BALJINDER PIRES MD Ot R51 HEADACHE 08/09/2017 BALJINDER PIRES MD Ot H47.10 UNSPECIFIED PAPILLEDEMA 08/09/2017 BALJINDER PIRES MD Ot R51 HEADACHE 09/01/2017 REGULO BLAKELY MD Ot F17.210 NICOTINE DEPENDENCE, CIGARETTES, UNCOMPL 09/01/2017 REGULO BLAKELY MD Ot H47.091 OTH DISORDERS OF OPTIC NERVE, NEC, RIGHT 09/01/2017 REGULO BLAKELY MD Ot H47. 10 UNSPECIFIED PAPILLEDEMA 09/01/2017 REGULO BLAKELY MD Ot Z88. 0 ALLERGY STATUS TO PENICILLIN 09/01/2017 REGULO BLAKELY MD Ot Z88. 1 ALLERGY STATUS TO OTHER ANTIBIOTIC AGENT 09/01/2017 REGULO BLAKELY MD Ot Z88. 6 ALLERGY STATUS TO ANALGESIC AGENT STATUS 10/14/2019 FENECH DOCRISTINE Ot N93.8 OTHER SPECIFIED ABNORMAL UTERINE AND VAG 10/15/2019 FENECH DOCRISTINE Ot N93.8 OTHER SPECIFIED ABNORMAL UTERINE AND VAG Procedures There is no data. Results Test Result Range Complete blood count (CBC) with automate d white blood cell (WBC) differential - 07/12/17 11:15 Blood leukocytes automated count (number/volume) 7.2 10*3/uL 4.3-11.0 Blood erythrocytes automated count (number/volume) 4.75 10*6/uL 4.35-5.85 Venous blood hemoglobin measurement (mass/volume) 12.7 g/dL 11.5-16.0 Blood hematocrit (volume fraction) 39 % 35-52 Automated erythrocyte mean corpuscular volume 82 [ foz_us] 80-99 Automated erythrocyte mean corpuscular h emoglobin (mass per erythrocyte) 27 pg 25-34 Automated erythrocyte mean corpuscular h emoglobin concentration measurement (mass/volume) 33 g/dL 32-36 Automated erythrocyte distribution width ratio 14. 1 % 10.0- 14.5 Automated blood platelet count (count/volume) 437 10*3/uL [...] 10*3 1.0-4.0 Blood monocytes automated count (number/volume) 0. 6 10*3 0.0-1.0 Automated eosinophil count 0.1 10*3/uL 0 .0-0.3 Automated blood basophil count (count/volume) 0.0 10*3/uL 0.0-0.1 Comprehensive metabolic panel - 07/12/17 11:15 Serum or plasma sodium measurement (moles/volume) 140 mmol/L 135-145 Serum or plasma potassium measurement (moles/volume) 4.1 mmol/L 3.6-5.0 Serum or plasma chloride measurement (moles/volume) 106 mmol/L 98-107 Carbon dioxide 25 mmol/L 21-32 Serum or plasma anion gap determination (moles/volume) 9 mmol/L 5-14 Serum or plasma urea nitrogen measurement (mass/volume ) 15 mg/dL 7-18 Serum or plasma creatinine measurement (mass/volume) 0.79 mg/dL 0.60-1.30 Serum or plasma urea nitrogen/creatinine mass ratio 19 NRG Serum or plasma creatinine measurement w ith calculation of estimated glomerular filtration rate > NRG Serum or plasma glucose measurement (mass/volume) 104 mg/dL 70-105 Serum or plasma calcium measurement (mass/volume) 9.7 mg/dL 8.5-10.1 Serum or plasma total bilirubin measurement (mass/volu me) 0.3 mg/dL 0.1-1.0 Serum or plasma alkaline phosphatase tim surement (enzymatic activity/volume) 97 U/L 40-136 Serum or plasma aspartate aminotransfera se measurement (enzymatic activity/volume) 31 U/L 5-34 Serum or plasma alanine aminotransferase measurement (enzymatic activity/volume) 35 U/L 0-55 Serum or plasma protein measurement (mass/volume) 8.5 g/dL 6.4-8.2 Serum or plasma albumin measurement (mass/volume) 4.6 g/dL 3.2-4.5 CRP - 07/17/17 14:11 C-REACTIVE PROTEIN 18.8 mg/L <8.0 RA (RHEUMATOID) FACTOR - 07/21/17 10:12 RHEUMATOID FACTOR <14 IU/mL <14 PT/INR - 07/28/17 13:05 INR 0.9 NRG PT 10.5 sec 9.0-11.5 TSH - 10/09/17 11:01 TSH 0.68 mIU/L NRG CBC - 07/12/18 10:42 WHITE BLOOD CELL COUNT 8.1 Thousand/uL 3 .8-10.8 RED BLOOD CELL COUNT 4.74 Million/uL 3.8 0-5.10 HEMOGLOBIN 14.3 g/dL 11.7-15.5 HEMATOCRIT 42.8 % 35.0-45.0 MCV 90.3 fL 80.0-100.0 MCH 30.2 pg 27.0-33.0 MCHC 33.4 g/dL 32.0-36.0 RDW 12.5 % 11.0-15.0 PLATELET COUNT 369 Thousand/uL 140-400 MPV 10.2 fL 7.5-12.5 ABSOLUTE NEUTROPHILS 5087 cells/uL 1500- 7800 ABSOLUTE LYMPHOCYTES 2341 cells/uL 850-3 900 ABSOLUTE MONOCYTES 502 cells/uL 200-950 ABSOLUTE EOSINOPHILS 113 cells/uL 15-500 ABSOLUTE BASOPHILS 57 cells/uL 0-200 NEUTROPHILS 62.8 % NRG LYMPHOCYTES 28.9 % NRG MONOCYTES 6.2 % NRG EOSINOPHILS 1.4 % NRG BASOPHILS 0.7 % NRG DIFFERENTIAL, MANUAL - 08/22/18 12:36 ABSOLUTE NEUTROPHILS 7923 cells/uL 1500- 7800 ABSOLUTE MONOCYTES 653 cells/uL 200-950 ABSOLUTE EOSINOPHILS 264 cells/uL 15-500 ABSOLUTE BASOPHILS 125 cells/uL 0-200 NEUTROPHILS 57.0 % NRG LYMPHOCYTES 35.5 % NRG MONOCYTES 4.7 % NRG EOSINOPHILS 1.9 % NRG BASOPHILS 0.9 % NRG ABSOLUTE LYMPHOCYTES 4935 cells/uL 850-3 900 PLATELET ESTIMATION ADEQUATE ADEQUATE CBC MORPHOLOGY NORMAL ANEMIA PANEL - 03/22/19 12:38 IRON, TOTAL 72 mcg/dL 40-190 FERRITIN 12 ng/mL 16-154 IRON BINDING CAPACITY 401 mcg/dL (calc) 250-450 % SATURATION 18 % (calc) 16-45 CBC - 03/22/19 12:38 WHITE BLOOD CELL COUNT 12.7 Thousand/uL 3.8-10.8 RED BLOOD CELL COUNT 5.05 Million/uL 3.8 0-5.10 HEMOGLOBIN 14.9 g/dL 11.7-15.5 HEMATOCRIT 45.4 % 35.0-45.0 MCV 89.9 fL 80.0-100.0 MCH 29.5 pg 27.0-33.0 MCHC 32.8 g/dL 32.0-36.0 RDW 11.9 % 11.0-15.0 PLATELET COUNT 458 Thousand/uL 140-400 MPV 10.3 fL 7.5-12.5 ABSOLUTE NEUTROPHILS 8623 cells/uL 1500- 7800 ABSOLUTE LYMPHOCYTES 3124 cells/uL 850-3 900 ABSOLUTE MONOCYTES 724 cells/uL 200-950 ABSOLUTE EOSINOPHILS 165 cells/uL 15-500 ABSOLUTE BASOPHILS 64 cells/uL 0-200 NEUTROPHILS 67.9 % NRG LYMPHOCYTES 24.6 % NRG MONOCYTES 5.7 % NRG EOSINOPHILS 1.3 % NRG BASOPHILS 0.5 % NRG DIFFERENTIAL, MANUAL - 04/10/19 09:07 ABSOLUTE NEUTROPHILS 6540 cells/uL 1500- 7800 ABSOLUTE MONOCYTES 632 cells/uL 200-950 ABSOLUTE EOSINOPHILS 257 cells/uL 15-500 ABSOLUTE BASOPHILS 0 cells/uL 0-200 NEUTROPHILS 55.9 % NRG LYMPHOCYTES 33.3 % NRG MONOCYTES 5.4 % NRG EOSINOPHILS 2.2 % NRG BASOPHILS 0 % NRG ABSOLUTE BAND NEUTROPHILS 374 cells/uL 0 -750 ABSOLUTE LYMPHOCYTES 3896 cells/uL 850-3 900 BAND NEUTROPHILS 3.2 % NRG PLATELET ESTIMATION ADEQUATE ADEQUATE BMP - 06/17/19 10:49 GLUCOSE 99 mg/dL 65-139 UREA NITROGEN (BUN) 21 mg/dL 7-25 CREATININE 0.82 mg/dL 0.50-1.10 eGFR NON-AFR. BAHRAINI 95 mL/min/1.73m2 > OR = 60 eGFR 111 mL/min/1.73m2 > OR = 60 BUN/CREATININE RATIO NOT APPLICABLE (calc) 6-22 SODIUM 139 mmol/L 135-146 POTASSIUM 4.8 mmol/L 3.5-5.3 CHLORIDE 103 mmol/L 98-110 CARBON DIOXIDE 30 mmol/L 20-32 CALCIUM 9.8 mg/dL 8.6-10.2 ESTRADIOL - 07/31/19 10:31 ESTRADIOL 43 pg/mL NRG PROGESTERONE - 07/31/19 10:31 PROGESTERONE <0.5 ng/mL NRG DHEA - 07/31/19 10:31 DHEA SULFATE 156 mcg/dL 23-266 INSULIN LEVEL - 07/31/19 10:34 INSULIN 14.8 uIU/mL NRG TISSUE, SPECIMEN A - 08/06/19 16:40 A SOURCE NRG A GROSS DESCRIPTION NRG A DIAGNOSIS NRG A COMMENT NRG SUREPATH PAP AND HPV mRNA E6/E7 - 16:40 CLINICAL INFORMATION: NRG LMP: NRG PREV. PAP: NRG PREV. BX: NRG SOURCE: Vagina NRG STATEMENT OF ADEQUACY: NRG INTERPRETATION/RESULT: NRG PIT OPERATOR: NRG HPV mRNA E6/E7, SUREPATH VIAL Not Detected NOT DETECTED INFECTION: NRG COMMENT NRG Coronavirus SARS-CoV-2 SO 2018 0 08:01 Coronavirus Ab [Units/volume] in Serum Negative Negative Encounters ACCT No. Visit Date/Time Discharge Status Pt. Type Provider Facility Loc./Unit Complaint [id number] 07/18/2019 13:40:00 07/18/2019 23:59:5 9 [facility] Outpatient MARLENE CERDA [facility] [id number] 08/06/2019 13:40:00 Document Registration [id number] 07/31/2019 10:20:00 Document Registration [id number] 06/17/2019 10:40:00 Document Registration [id number] 04/10/2019 09:15:00 Document Registration [id number] 03/22/2019 12:00:00 Document Registration [id number] 08/22/2018 11:00:00 Document Registration [id number] 07/12/2018 11:00:00 Document Registration [id number] 10/09/2017 10:00:00 Document Registration [id number] 07/28/2017 13:00:00 Document Registration [id number] 07/21/2017 10:00:00 Document Registration [id number] 07/17/2017 13:40:00 Document Registration [id number] 10/17/2019 05:31:00 14:43:00 DIS Outpatient CRISTINE MERCER DO [facility] PREOP ABNORMAL UTERINE BLEED ING [id number] 10/09/2019 08:59:00 23:59:59 CLS Outpatient CRISTINE MERCER DO [facility] RAD AUB [id number] 08/04/2017 10:13:00 11:54:00 DIS Outpatient LEXIS CHE, BALJINDER Collado [facility] SDC OPTIC NERVE EDEMA [id number] 07/12/2017 10:45:00 018 14:47:00 DIS Emergency REDDY CHE, REGULO Correa [facility] ER SWOLLEN OPTIC NERVE [id number] 10/21/2019 11:30:00 P EN Preadmit CRISTINE MERCER DO [facility] SDC ABNORMAL UTERINE BLEEDING [id number] 10/01/2013 10:16:47 10/01/2013 23:59: 59 CLS Outpatient Sammie Allen
--- OUTSIDE RECORDS SUMMARY | 2019-10-21 09:58 | XMS REPORT ---
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 Active [id number] ALLERGIES No Information ENCOUNTERS Encounter Location Date Diagnosis [facility] [address] [id number] [address] [place] [id number] Oct, [facility] [address] [facility] [id number] [address] [place] [phone] Sep, [facility] [address] [facility] [id number] [address] [place] [phone] Sep, Migraine with aura and witho ut status migrainosus, not intractable G43.109 and Chronic fatigue R53.82 [facility] [address] [facility] [id number] [address] [place] [phone] August, Migraine with aura and witho ut status migrainosus, not intractable G43.109 ; Encounter to establish care Z76.89 and Contact dermatitis, unspecified contact dermatitis type, unspecified trigger L25.9 [facility] [address] [facility] [id number] [address] [place] [phone] August, [facility] [address] [facility] [id number] [address] [place] [phone] Jul, [facility] [address] [facility] [id number] [address] [place] [phone] Jun, Edema of optic nerve H47.10 [facility] [address] [id number] [address] [place] [phone] Jun, Migraine with aura and witho ut status migrainosus, not intractable G43.109 [facility] [address] [id number] [address] [place] [phone] 28 Jun, 2017 [facility] [address] [id number] [address] [place] [phone] Jun, Edema of optic nerve H47.10 [facility] [address] [id number] [address] [place] [phone] Jun, Edema of optic nerve H47.10 [facility] [address] [id number] [address] [place] [phone] 22 Jun, 2017 Edema of optic nerve H47.10 [facility] [address] [id number] [address] [place] [phone] Jun, Edema of optic nerve H47.10 [facility] [address] [id number] [address] [place] [phone] 14 Jun, 2017 [facility] [address] [id number] [address] [place] [address] [phone] Mar, Dental caries K02.9 [facility] [address] [id number] [address] [place] [address] [phone] Jan, Dental examination Z01.20 IMMUNIZATIONS No Known Immunizations SOCIAL HISTORY Never Assessed REASON FOR VISIT eye exam PLAN OF CARE VITAL SIGNS MEDICATIONS Unknown Medications RESULTS No Results PROCEDURES No Known procedures INSTRUCTIONS MEDICATIONS ADMINISTERED No Known Medications MEDICAL (GENERAL) HISTORY Type Description Date Medical History Anemia Medical History Arthritis Medical History Back Trouble Surgical History tonsillectomy
--- OUTSIDE RECORDS SUMMARY | 2019-10-21 09:58 | XMS REPORT ---
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 Active 086304083 ALLERGIES Substance Reaction Event Type Date Status Keflex nausea Drug Allergy Jun, Active Amoxicillin anaphylaxis Drug Allergy Jun, Active C-core Unknown Non Drug Allergy Jun, Active ENCOUNTERS Encounter Location Date Diagnosis [facility] [address] [facility] [id number] [address] [place] [address] [id number] Oct, [facility] [address] [phone] Sep, [facility] [address] [phone] Sep, Migraine with aura and witho ut status migrainosus, not intractable G43.109 and Chronic fatigue R53.82 [facility] [address] [place] [id number] [address] [place] [phone] August, Migraine with aura and witho ut status migrainosus, not intractable G43.109 ; Encounter to establish care Z76.89 and Contact dermatitis, unspecified contact dermatitis type, unspecified trigger L25.9 [facility] [address] [place] [id number] [address] [place] [phone] August, [facility] [address] [place] [id number] [address] [place] [phone] Jul, [facility] [address] [id number] [address] [place] [phone] 30 Jun, 2017 Edema of optic nerve H47.10 [facility] [address] [id number] [address] [place] [phone] Jun, Migraine with aura and witho ut status migrainosus, not intractable G43.109 [facility] [address] [facility] [id number] [address] [place] [phone] Jun, [facility] [address] [facility] [id number] [address] [place] [phone] Jun, Edema of optic nerve H47.10 [facility] [address] [facility] [id number] [address] [place] [phone] Jun, Edema of optic nerve H47.10 [facility] [address] [facility] [id number] [address] [place] [phone] Jun, Edema of optic nerve H47.10 [facility] [address] [facility] [id number] [address] [place] [phone] Jun, Edema of optic nerve H47.10 [facility] [address] [facility] [id number] [address] [place] [phone] 14 Jun, 2017 [facility] [address] [place] [id number] [address] [place] [address] [id number] Mar, Dental caries K02.9 [facility] [id number] [place] [address] [phone] Jan, Dental examination Z01.20 IMMUNIZATIONS Vaccine Route Administration Date Status PHENERGAN (IM) 12.5 MG (25 MG/ML) IM Intramuscular July 26 8 Administered TORADOL (IM) 60 MG/2ML (UP TO 15 MG) IM Intramuscular July 26, 2017 Administered SOCIAL HISTORY Never Assessed REASON FOR VISIT migraine/vomitting Pt states she has had a headache for several days, today it has gotten worse, light is bothersome she is having nausea and vomiting with thi s. Reports started behind her eyes and now entire head is hurting TEE Ricardo PLAN OF CARE Activity Details Follow Up prn Reason: VITAL SIGNS Height 61 in 2017-07-26 Weight 185.8 lbs 2017-07-26 Temperature 97.8 degrees Fahrenheit 2017-07-26 Heart Rate 90 bpm 2017-07-26 Respiratory Rate 22 2017-07-26 BMI 35.10 kg/m2 2017-07-26 Blood pressure systolic 140 mmHg 2017-07-26 Blood pressure diastolic 68 mmHg 2017-07-26 MEDICATIONS Medication Instructions Dosage Frequency Start Date End Date Duration S suellen Ondansetron 4 MG Orally every 8 hours, PRN 1 tablet Jun, 05 days Active Rleifuspqv-NVNY-Tsauqjrg 50-325-40 MG Orally every 4-6 hours as needed 1 tablet as needed Jun, Jul, 05 days Active Fioricet 50-300-40 MG Orally every 4-6 hours as needed 1 capsule as needed Jun, Jul, 05 days Active RESULTS No Results PROCEDURES Procedure Date Ordered Result Body Site TORADOL (IM) 60 MG/2ML (UP TO 15 MG) July 26, 2017 PHENERGAN (IM) 12.5 MG (25 MG/ML) July 26, 2017 THER/PROPH/DIAG INJ, SC/IM July 26, 2017 INSTRUCTIONS MEDICATIONS ADMINISTERED No Known Medications MEDICAL (GENERAL) HISTORY Type Description Date Medical History Anemia Medical History Arthritis Medical History Back Trouble Surgical History tonsillectomy
--- OUTSIDE RECORDS SUMMARY | 2019-10-21 09:58 | XMS REPORT ---
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 Active 320071141 ALLERGIES Substance Reaction Event Type Date Status Keflex nausea Drug Allergy Jan, Active Amoxicillin anaphylaxis Drug Allergy Jan, Active ENCOUNTERS Encounter Location Date Diagnosis [place] [address] [phone] Sep, [facility] [address] [phone] August, Migraine with aura and witho ut status migrainosus, not intractable G43.109 ; Encounter to establish care Z76.89 and Contact dermatitis, unspecified contact dermatitis type, unspecified trigger L25.9 [facility] [address] [place] [id number] [address] [place] [phone] August, [facility] [address] [place] [id number] [place] [phone] Jul, [facility] [address] [place] [id number] [address] [place] [phone] Jun, Edema of optic nerve H47.10 [facility] [address] [place] [id number] [address] [place] [phone] Jun, Migraine with aura and witho ut status migrainosus, not intractable G43.109 [facility] [address] [place] [id number] [address] [place] [phone] Jun, 2017 [facility] [address] [id number] [address] [place] [phone] 27 Jun, 2017 Edema of optic nerve H47.10 [facility] [address] [id number] [address] [place] [phone] 23 Jun, 2017 Edema of optic nerve H47.10 [facility] [address] [id number] [address] [place] [phone] 22 Jun, 2017 Edema of optic nerve H47.10 [facility] [address] [id number] [address] [place] [phone] 19 Jun, 2017 Edema of optic nerve H47.10 [facility] [address] [id number] [address] [place] [phone] 14 Jun, 2017 [facility] [address] [facility] [id number] [address] [place] [address] [id number] Mar, Dental caries K02.9 [facility] [address] [facility] [id number] [address] [place] [address] [phone] Jan, Dental examination Z01.20 IMMUNIZATIONS No Known Immunizations SOCIAL HISTORY Never Assessed REASON FOR VISIT RUBEN PLAN OF CARE Activity Details Follow Up prn Reason:Extract tooth # 1 9 or # 30 VITAL SIGNS Blood pressure systolic 123 mmHg 2017-02-28 Blood pressure diastolic 88 mmHg 2017-02-28 MEDICATIONS Medication Instructions Dosage Frequency Start Date End Date Duration S tatus Clindamycin HCl 150 MG Orally every 6 hrs 2 capsules 6h 7 N 2016 7 days Active RESULTS No Results PROCEDURES Procedure Date Ordered Result Body Site LTD ORAL EVALUATION - PROBLEM FOCUS Feb 28, 2017 INTRAORL-PERIAPICAL 1 FILM [id number] Feb 28, 2017 BITEWINGS - TWO FILMS Feb 28, 2017 INTRAORL-PERIAPICAL EA ADD FILM Feb 28, 2017 INSTRUCTIONS MEDICATIONS ADMINISTERED No Known Medications MEDICAL (GENERAL) HISTORY Type Description Date Medical History Anemia Medical History Arthritis Medical History Back Trouble Surgical History tonsillectomy
--- OUTSIDE RECORDS SUMMARY | 2019-10-21 09:58 | XMS REPORT ---
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 Active 582806605 ALLERGIES Substance Reaction Event Type Date Status Keflex nausea Drug Allergy Mar, Active Amoxicillin anaphylaxis Drug Allergy Mar, Active C-core Unknown Non Drug Allergy Mar, Active ENCOUNTERS Encounter Location Date Diagnosis [place] [address] [phone] Sep, [facility] [address] [place] [id number] [place] [phone] August, Migraine with aura and witho ut status migrainosus, not intractable G43.109 ; Encounter to establish care Z76.89 and Contact dermatitis, unspecified contact dermatitis type, unspecified trigger L25.9 [facility] [address] [place] [id number] [address] [place] [phone] August, [facility] [address] [place] [id number] [address] [phone] Jul, [facility] [address] [place] [id number] [address] [place] [place] [phone] Jun, Edema of optic nerve H47.10 [facility] [address] [place] [id number] [address] [place] [phone] Jun, Migraine with aura and witho ut status migrainosus, not intractable G43.109 [facility] [address] [place] [id number] [address] [place] [phone] 28 Jun, 2017 [facility] [address] [id number] [address] [place] [phone] 27 Jun, 2017 Edema of optic nerve H47.10 [facility] [address] [id number] [address] [place] [phone] 23 Jun, 2017 Edema of optic nerve H47.10 [facility] [address] [id number] [address] [place] [place] [phone] Jun, Edema of optic nerve H47.10 [facility] [address] [id number] [address] [place] [place] [phone] 19 Jun, 2017 Edema of optic nerve H47.10 [facility] [address] [id number] [address] [place] [phone] 14 Jun, 2017 [facility] [address] [facility] [id number] [address] [place] [phone] Mar, Dental caries K02.9 [facility] [address] [facility] [id number] [address] [place] [phone] Jan, Dental examination Z01.20 IMMUNIZATIONS No Known Immunizations SOCIAL HISTORY Never Assessed REASON FOR VISIT te 19 or 30 PLAN OF CARE Activity Details Follow Up prn Reason:#19-te VITAL SIGNS Blood pressure systolic 139 mmHg 2017-03-22 Blood pressure diastolic 91 mmHg 2017-03-22 MEDICATIONS Unknown Medications RESULTS No Results PROCEDURES Procedure Date Ordered Result Body Site EXTRAC ERUPTED TOOTH/EXPOSED ROOT Mar 22, 2017 INSTRUCTIONS MEDICATIONS ADMINISTERED No Known Medications MEDICAL (GENERAL) HISTORY Type Description Date Medical History Anemia Medical History Arthritis Medical History Back Trouble Surgical History tonsillectomy
--- OUTSIDE RECORDS SUMMARY | 2019-10-21 09:58 | XMS REPORT ---
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 Active 104826894 ALLERGIES No Information ENCOUNTERS Encounter Location Date Diagnosis [facility] [address] [id number] [address] [place] [phone] Oct, [facility] [address] [facility] [id number] [address] [place] [phone] Sep, [facility] [address] [facility] [id number] [address] [place] [phone] Sep, Migraine with aura and witho ut status migrainosus, not intractable G43.109 and Chronic fatigue R53.82 [facility] [address] [facility] [id number] [address] [place] [phone] August, Migraine with aura and witho ut status migrainosus, not intractable G43.109 ; Encounter to establish care Z76.89 and Contact dermatitis, unspecified contact dermatitis type, unspecified trigger L25.9 [facility] [address] [facility] [id number] [address] [place] [phone] August, [facility] [address] [facility] [id number] [address] [place] [phone] Jul, [facility] [address] [facility] [id number] [address] [place] [phone] Jun, Edema of optic nerve H47.[address] [facility] [address] [id number] [address] [place] [phone] Jun, Migraine with aura and witho ut status migrainosus, not intractable G43.109 [facility] [address] [id number] [address] [place] [phone] 28 Jun, 2017 [facility] [address] [id number] [address] [place] [phone] Jun, Edema of optic nerve H47.10 [facility] [address] [id number] [address] [place] [phone] Jun, Edema of optic nerve H47.10 [facility] [address] [id number] [address] [place] [phone] 22 Jun, 2017 Edema of optic nerve H47.10 [facility] [address] [id number] [address] [place] [phone] Jun, Edema of optic nerve H47.10 [facility] [address] [id number] [address] [place] [phone] 14 Jun, 2017 [facility] [id number] [place] [phone] Mar, Dental caries K02.9 [facility] [address] [place] [id number] [address] [place] [phone] Jan, Dental examination Z01.20 IMMUNIZATIONS No Known Immunizations SOCIAL HISTORY Never Assessed REASON FOR VISIT PLAN OF CARE VITAL SIGNS MEDICATIONS Unknown Medications RESULTS No Results PROCEDURES No Known procedures INSTRUCTIONS MEDICATIONS ADMINISTERED No Known Medications MEDICAL (GENERAL) HISTORY Type Description Date Medical History Anemia Medical History Arthritis Medical History Back Trouble Surgical History tonsillectomy
--- OUTSIDE RECORDS SUMMARY | 2019-10-21 09:58 | XMS REPORT ---
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 Active [id number] ALLERGIES No Information ENCOUNTERS Encounter Location Date Diagnosis [facility] [address] [id number] [address] [place] [phone] Oct, [facility] [address] [facility] [id number] [address] [place] [phone] Sep, [facility] [address] [facility] [id number] [address] [place] [phone] Sep, Migraine with aura and witho ut status migrainosus, not intractable G43.109 and Chronic fatigue R53.82 [facility] [address] [facility] [id number] [address] [place] [phone] August, Migraine with aura and witho ut status migrainosus, not intractable G43.109 ; Encounter to establish care Z76.89 and Contact dermatitis, unspecified contact dermatitis type, unspecified trigger L25.9 [facility] [address] [facility] [id number] [address] [place] [phone] August, [facility] [address] [facility] [id number] [address] [place] [phone] Jul, [facility] [address] [facility] [id number] [address] [place] [phone] Jun, Edema of optic nerve H47.10 [facility] [address] [id number] [address] [place] [phone] Jun, Migraine with aura and witho ut status migrainosus, not intractable G43.109 [facility] [address] [id number] [address] [place] [phone] 28 Jun, 2017 [facility] [address] [id number] [address] [place] [phone] Jun, Edema of optic nerve H47.10 [facility] [address] [id number] [address] [place] [phone] Jun, Edema of optic nerve H47.10 [facility] [address] [id number] [address] [place] [phone] 22 Jun, 2017 Edema of optic nerve H47.10 [facility] [address] [id number] [address] [place] [phone] Jun, Edema of optic nerve H47.10 [facility] [address] [id number] [address] [place] [phone] 14 Jun, 2017 [facility] [address] [place] [phone] Mar, Dental caries K02.9 [facility] [address] [facility] [id number] [address] [place] [phone] Jan, Dental examination Z01.20 IMMUNIZATIONS No Known Immunizations SOCIAL HISTORY Never Assessed REASON FOR VISIT Lab (walk-in) PLAN OF CARE VITAL SIGNS MEDICATIONS Unknown Medications RESULTS No Results PROCEDURES Procedure Date Ordered Result Body Site RHEUMATOID FACTOR, QUANT July 21, 2017 ANTINUCLEAR ANTIBODIES July 21, 2017 INSTRUCTIONS MEDICATIONS ADMINISTERED No Known Medications MEDICAL (GENERAL) HISTORY Type Description Date Medical History Anemia Medical History Arthritis Medical History Back Trouble Surgical History tonsillectomy
[2019-10-21] MEDS ORDERED: LACTATED RINGERS 1,000 ML IV PRN (10:09)
[2019-10-21] MEDS ORDERED: MIDAZOLAM 2 MG/2 ML (VERSED) VIAL IV ONE (10:15)
[2019-10-21 10:21] LABS: BASOPHILS # (AUTO) 0.1 10^3/uL (0.0-0.1); BASOPHILS % (AUTO) 0 % (0-10); EOSINOPHILS # (AUTO) 0.2 10^3/uL (0.0-0.3); EOSINOPHILS % (AUTO) 2 % (0-10); HEMATOCRIT 41 % (35-52); HEMOGLOBIN 13.9 G/DL (11.5-16.0); LYMPHOCYTES # (AUTO) 2.9 X 10^3 (1.0-4.0); LYMPHOCYTES % (AUTO) 26 % (12-44); MEAN CORPUSCULAR HEMOGLOBIN 28 PG (25-34); MEAN CORPUSCULAR HGB CONC 34 G/DL (32-36); MEAN CORPUSCULAR VOLUME 83 FL (80-99); MEAN PLATELET VOLUME 9.8 FL (7.4-10.4); MONOCYTES # (AUTO) 0.8 X 10^3 (0.0-1.0); MONOCYTES % (AUTO) 7 % (0-12); NEUTROPHILS # (AUTO) 7.2 X 10^3 (1.8-7.8); NEUTROPHILS % (AUTO) 64 % (42-75); PLATELET COUNT 382 10^3/uL (130-400); RED CELL DISTRIBUTION WIDTH 14.5 % (10.0-14.5); WHITE BLOOD COUNT 11.2 10^3/uL (4.3-11.0)
--- NOTE | 2019-10-21 10:43 | Progress Note-Pre Operative ---
Pre-Operative Progress Note H&P Reviewed The H&P was reviewed, patient examined and no changes noted. Date Seen by Provider: Oct 21, 2019 Time Seen by Provider: 10:40 Date H&P Reviewed: Oct 21, 2019 Time H&P Reviewed: 10:40 Pre-Operative Diagnosis: AUB, Menorrhagia CRISTINE MERCER DO Oct 21, 2019 10:43
[2019-10-21] MEDS ORDERED: MIDAZOLAM 2 MG/2 ML (VERSED) VIAL ONE (10:55)
[2019-10-21] MEDS ORDERED: fentaNYL INJECTION 100 MCG/2 ML AMP ONE (10:55)
[2019-10-21] MEDS ORDERED: DEXAMETHASONE 10 MG/ML (DECADRON) 1 ML VIAL ONE (10:55)
[2019-10-21] MEDS ORDERED: proPOfol 200 MG/20 ML (DIPRIVAN) VIAL IV ONE (10:55)
[2019-10-21] MEDS ORDERED: ONDANSETRON 4 MG/2 ML (SDV) Z0FRAN ONE (10:55)
[2019-10-21] MEDS ORDERED: LIDOCAINE PF 2% 5 ML (XYLOCAINE) VIAL ONE (10:55)
[2019-10-21] MEDS ORDERED: SEVOFLURANE (ULTANE) 15 ML INHAL SOLN ONE ×2 (10:55→11:53)
[2019-10-21] MEDS ORDERED: D5 LR IV SOLUTION 1,000 ML IV SCH (10:58)
[2019-10-21] MEDS ORDERED: KETOROLAC 30 MG/ML VIAL IVP ONE (11:00)
[2019-10-21] MEDS ORDERED: ONDANSETRON 4 MG/2 ML (SDV) Z0FRAN IVP PRN ×2 (11:00→12:00)
--- NOTE | 2019-10-21 11:08 | Discharge Inst-Women's Service ---
Discharge Inst-Women's Serv Depart Medication/Instructions New, Converted or Re-Newed RX: RX on Chart Problems Reviewed?: Yes Consults/Follow Up Additional Follow Up: Yes Activity Activity: Activity as Tolerated Driving Instructions: You May Drive NO SMOKING: NO SMOKING Nothing Inside Vagina: No Douching, No Twisp, No Tampons Diet Discharge Diet: No Restrictions Symptoms to Report to : Bleeding Excessive, Pain Increased, Fever Over 101 Degrees F, Vaginal Bleeding Increase, Questions/Concerns For Any Problems or Questions: Contact Your Physician CRISTINE MERCER DO Oct 21, 2019 11:08
[2019-10-21] MEDS ORDERED: IBUP-1773 PO (11:11)
[2019-10-21] MEDS ORDERED: BUPIVACAINE 0.25% 30 ML (SENSORCAINE) VIAL ONE (11:29)
[2019-10-21] MEDS ORDERED: HYDROmorphone 2 MG/ML VIAL (DILAUDID) IV ONE (12:00)
[2019-10-21] MEDS ORDERED: morphine INJ 10 MG/ML 1ML (SYR OR VIAL) IVP ONE (12:00)
--- NOTE | 2019-10-21 14:35 | Anesthesia-General Post-Op ---
General Patient Condition Mental Status/LOC: Same as Preop Cardiovascular: Satisfactory Nausea/Vomiting: Absent Respiratory: Satisfactory Pain: Controlled Complications: Absent Post Op Complications Complications None Follow Up Care/Instructions Patient Instructions None needed. Anesthesia/Patient Condition Patient Condition Patient is doing well, no complaints, stable vital signs, no apparent adverse anesthesia problems. No complications reported per nursing. CLARENCE YEPEZ CRNA Oct 21, 2019 14:35
--- NOTE | 2019-10-21 20:01 | OPERATIVE REPORT ---
DATE OF SERVICE: PREOPERATIVE DIAGNOSES: 1. A 34-year-old female with abnormal uterine bleeding. 2. Menorrhagia. POSTOPERATIVE DIAGNOSES: 1. A 34-year-old female with abnormal uterine bleeding. 2. Menorrhagia. PROCEDURE: D and C. SURGEON: Cristine Mercer DO ANESTHESIA: General endotracheal. ESTIMATED BLOOD LOSS: Minimal. URINE OUTPUT: 200 mL clear at the start of the procedure. FLUIDS: 800 mL lactated Ringer's solution. FINDINGS: A grossly normal appearing external female genitalia, normal appearing cervix, moderate to heavy amount of endometrial tissue collected with curetting. SPECIMEN SENT: Endometrial curetting. INDICATIONS FOR PROCEDURE: This 34-year-old female is the patient who had sought care in my office for abnormal uterine bleeding. She was initially wanted to proceed with hysterectomy. She had undergone other hormonal treatment therapies in the past to help address her bleeding, all of which have not helped her with her bleeding problem. I discussed with the patient proceeding with D and C for the potential if there being an endometrial polyp that could be causing her bleeding, which would not respond to hormonal therapy traditionally. I also discussed with the patient the possible diagnostic and curative aspects of the D and C. After all of her questions were answered, she was agreeable. Consent was obtained, the patient was taken to the operating room. OPERATIVE REPORT IN DETAIL: Once in the operating room, anesthesia was found to be adequate. She was placed in dorsal lithotomy position, prepped and draped in normal sterile fashion. Straight catheterization was performed. Weighted speculum inserted to the patient's vagina after a timeout was performed. A right angle retractor was used to visualize the cervix, which was grasped at 12 o'clock position using long Allis clamp. I then gently sound the uterine cavity, depth was found to be 8 cm. I then performed a paracervical block at 9 and 3 o'clock positions on the cervix. Care was taken to aspirate for injecting, 5 mL of 0.25% Marcaine injected at each site. I then gently dilated the cervix using Hegar dilators to maximum dilatation approximately 1.2 cm, at which point I collected endometrial curetting using a small to medium size endometrial curette. I do this until a gentle uterine cry was appreciated and a copious amount of endometrial tissue was collected and sent as endometrial curetting after which there is no active bleeding noted from the external cervical os at that point. I then removed all the instruments from the patient's vagina. The patient tolerated the procedure well and was taken to recovery area in stable condition. Lap and sponge counts were correct at the end of procedure. Instrument count was correct as well. Job ID: [id number] DocumentID: [id number] Dictated Date: 10/21/2019 12:36:20 Plant Equipment Engineer Date: 10/21/2019 20:00:48 Dictated By: CRISTINE MERCER DO
== END 2019-10-21 13:25 | disposition home or self-care (01) ==
LOC: SDC 09:29
PROVIDERS: ATTEND Obstetrics & Gynecology
DX: N92.0 Excessive and frequent menstruation with regular cycle (principal); N93.8 Other specified abnormal uterine and vaginal bleeding; F17.210 Nicotine dependence, cigarettes, uncomplicated; M06.9 Rheumatoid arthritis, unspecified; G43.909 Migraine, unspecified, not intractable, without status migrainosus; F32.9 Major depressive disorder, single episode, unspecified; F41.9 Anxiety disorder, unspecified; E66.9 Obesity, unspecified; Z68.32 Body mass index [BMI] 32.0-32.9, adult; Z88.0 Allergy status to penicillin; Z88.8 Allergy status to other drugs, medicaments and biological substances; Z88.1 Allergy status to other antibiotic agents; Z79.899 Other long term (current) drug therapy
CPT/HCPCS: 36415; 84703; 85025; 86850; 86900; 86901; 87081; 88305

== ENCOUNTER 2020-02-13 05:27 | Outpatient (RCR) | payer OTHER ==
[~2020-02-13] VITALS: Ht 157.5 cm; Wt 85.0 kg
[~2020-02-13 05:27] MED LIST changes: +IBUP-1773 PO
== END 2020-02-13 09:31 | disposition home or self-care (01) ==
LOC: PREOP 05:27
PROVIDERS: ATTEND Obstetrics & Gynecology
DX: Z01.812 Encounter for preprocedural laboratory examination (principal); N93.8 Other specified abnormal uterine and vaginal bleeding; N94.6 Dysmenorrhea, unspecified; Z20.828 Contact with and (suspected) exposure to other viral communicable diseases
CPT/HCPCS: 87635

== ENCOUNTER 2020-02-17 09:59 | Day surgery (SDC) | payer OTHER ==
[2020-02-17] VITALS (12 sets, daily range): BP systolic 116–144; BP diastolic 78–95
[~2020-02-17] VITALS: Ht 157.5 cm; Wt 87.7 kg
[2020-02-17] MEDS ORDERED: LACTATED RINGERS 1,000 ML IV SCH ×2 (10:05→10:56)
[2020-02-17] MEDS ORDERED: ceFAZolin 2 GM IV Premixed 50 ML IV ONE (10:15)
[2020-02-17] MEDS ORDERED: metroNIDAZOLE 500MG/100ML IVPB 100 ML IV ONE (10:15)
[2020-02-17 10:43] LABS: BASOPHILS # (AUTO) 0.1 10^3/uL (0.0-0.1); BASOPHILS % (AUTO) 1 % (0-10); EOSINOPHILS # (AUTO) 0.2 10^3/uL (0.0-0.3); EOSINOPHILS % (AUTO) 2 % (0-10); HEMATOCRIT 41 % (35-52); HEMOGLOBIN 13.6 g/dL (11.5-16.0); LYMPHOCYTES # (AUTO) 2.4 10^3/uL (1.0-4.0); LYMPHOCYTES % (AUTO) 25 % (12-44); MEAN CORPUSCULAR HEMOGLOBIN 30 pg (25-34); MEAN CORPUSCULAR HGB CONC 33 g/dL (32-36); MEAN CORPUSCULAR VOLUME 90 fL (80-99); MEAN PLATELET VOLUME 9.6 fL (9.0-12.2); MONOCYTES # (AUTO) 0.6 10^3/uL (0.0-1.0); MONOCYTES % (AUTO) 6 % (0-12); NEUTROPHILS # (AUTO) 6.6 10^3/uL (1.8-7.8); NEUTROPHILS % (AUTO) 67 % (42-75); PLATELET COUNT 374 10^3/uL (130-400); WHITE BLOOD COUNT 9.9 10^3/uL (4.3-11.0)
--- NOTE | 2020-02-17 10:59 | Progress Note-Pre Operative ---
Pre-Operative Progress Note H&P Reviewed The H&P was reviewed, patient examined and no changes noted. Date Seen by Provider: Feb 17, 2020 Time Seen by Provider: 11:00 Date H&P Reviewed: Feb 17, 2020 Time H&P Reviewed: 11:00 Pre-Operative Diagnosis: AUB, BMI 35, Dysmenorrhea CRISTINE MERCER DO Feb 17, 2020 10:59
[2020-02-17] MEDS ORDERED: IBUP-844 PO (11:00)
[2020-02-17] MEDS ORDERED: SIMETHICONE 80 MG (MYLICON) CHEW PO PRN (11:00)
[2020-02-17] MEDS ORDERED: KETOROLAC 30 MG/ML VIAL IV PRN (11:00)
[2020-02-17] MEDS ORDERED: CHLORASEPTIC LOZENGE MM PRN (11:00)
[2020-02-17] MEDS ORDERED: ONDANSETRON 4 MG/2 ML (SDV) Z0FRAN IV PRN (11:00)
[2020-02-17] MEDS ORDERED: HYDR-34 PO (11:00)
[2020-02-17] MEDS ORDERED: ZOLPIDEM 5 MG (AMBIEN) TAB PO PRN (11:00)
[2020-02-17] MEDS ORDERED: DCS100C PO (11:00)
[2020-02-17] MEDS ORDERED: DOCUSATE SODIUM 100 MG (COLACE) CAP PO PRN (11:00)
[2020-02-17] MEDS ORDERED: HYDROcodone/APAP 7.5 MG/325 MG (LORTAB, LORCET PLUS) TABLET PO PRN (11:00)
[2020-02-17] MEDS ORDERED: ANTACID SUSP 30 ML UDC (MYLANTA) PO PRN (11:00)
--- NOTE | 2020-02-17 11:01 | Discharge Inst-Women's Service ---
Discharge Inst-Women's Serv Depart Medication/Instructions New, Converted or Re-Newed RX: RX on Chart Problems Reviewed?: Yes Consults/Follow Up Additional Follow Up: Yes Orders/Referrals Dr. De Los Santos in 7-10 days and in 8 weeks Activity Activity: Activity as Tolerated Driving Instructions: No Driving for 1 Week NO SMOKING: NO SMOKING Nothing Inside Vagina: No Douching, No [place], No Tampons Diet Discharge Diet: No Restrictions Symptoms to Report to : Bleeding Excessive, Pain Increased, Fever Over 101 Degrees F, Vaginal Bleeding Increase, Questions/Concerns For Any Problems or Questions: Contact Your Physician Skin/Wound Care Infection Signs and Symptoms: Increased Redness, Foul Odor of Wound, Increased Drainage, Skin Itchy or Has a Rash, Increased Swelling, Temperature Above 101 F Operative Area Clean and Dry: Keep Incision Clean/Dry Stitches/Alejo/Dermabond: Dermabond, Care of Stitches Bathing Instructions: CRISTINE Tsang DO Feb 17, 2020 11:01
[2020-02-17 11:03] LABS: BUN/CREATININE RATIO 19; CALCIUM 9.1 MG/DL (8.5-10.1); CARBON DIOXIDE 24 MMOL/L (21-32); CHLORIDE 105 MMOL/L (98-107); GFR ESTIMATED > 60; GLUCOSE 97 MG/DL (70-105); POTASSIUM 4.2 MMOL/L (3.6-5.0); SODIUM 140 MMOL/L (135-145)
[2020-02-17] MEDS ORDERED: MIDAZOLAM 2 MG/2 ML (VERSED) VIAL ONE (11:08)
[2020-02-17] MEDS ORDERED: fentaNYL INJECTION 100 MCG/2 ML AMP ONE ×2 (11:08→13:08)
[2020-02-17] MEDS ORDERED: ROCURONIUM 10 MG/ML 5 ML SYRINGE IV ONE (11:08)
[2020-02-17] MEDS ORDERED: LIDOCAINE PF 2% 5 ML (XYLOCAINE) VIAL ONE (11:08)
[2020-02-17] MEDS ORDERED: SEVOFLURANE (ULTANE) 15 ML INHAL SOLN ONE ×2 (11:08→13:01)
[2020-02-17] MEDS ORDERED: proPOfol 200 MG/20 ML (DIPRIVAN) VIAL IV ONE (11:08)
[2020-02-17] MEDS ORDERED: ONDANSETRON 4 MG/2 ML (SDV) Z0FRAN ONE (11:12)
[2020-02-17] MEDS ORDERED: BUPIVACAINE 0.25% 30 ML (SENSORCAINE) VIAL ONE (11:15)
[2020-02-17] MEDS: LACTATED RINGERS 1,000 ML IV PRN ×2 (11:17→12:58)
[2020-02-17] MEDS ORDERED: NEOSTIGMINE 3 MG/3 ML VIAL ONE (13:12)
[2020-02-17] MEDS ORDERED: GLYCOPYRROLATE 0.2 MG/ML (ROBINUL) 2 ML VIAL ONE (13:12)
[2020-02-17] MEDS ORDERED: ONDANSETRON 4 MG/2 ML (SDV) Z0FRAN IVP PRN (13:30)
[2020-02-17] MEDS ORDERED: PROMETHAZINE INJ 25 MG/ML (PHENERGAN) AMP IVP ONE (13:30)
[2020-02-17] MEDS ORDERED: fentaNYL INJECTION 100 MCG/2 ML AMP IVP ONE (13:30)
[2020-02-17] MEDS ORDERED: morphine INJ 10 MG/ML 1ML (SYR OR VIAL) IVP ONE (13:30)
[2020-02-17] MEDS ORDERED: HYDROmorphone 2 MG/ML VIAL (DILAUDID) IV ONE (13:30)
[2020-02-17] MEDS ORDERED: MEPERIDINE (DEMEROL) INJ 50 MG/ML IVP ONE (13:30)
[2020-02-17] MEDS ORDERED: morphine INJ 10 MG/ML 1ML (SYR OR VIAL) ONE (13:52)
--- NOTE | 2020-02-17 14:20 | NUR ---
Report from Castillo Odonnell RN. Pt complaining of severe pain from catheter - she insists she needs to have BM. Up to BR with assistance with assistance of this RN and Castillo Odonnell RN. Unable to have BM. Severe pain remains from catheter - states abdomen does not hurt. Assisted back to bed x 2 assistance. Mj Chavarria RN will assume care of pt. Pt requiring oxygen at 3 L to keep sats above 93%.
--- NOTE | 2020-02-17 14:44 | NUR ---
DR. MERCER NOTIFIED OF PT WANTING CATHETER OUT. STATES IT IS THE ONLY PAIN SHE HAS. "FEELS LIKE SOMETHING IS POKING HER." ORDER TO D/C PANCHAL.
--- NOTE | 2020-02-17 14:55 | NUR ---
PANCHAL D/C'ED WITH 80 CC CLEAR YELLOW URINE IN BAG. NO VAGINAL BLEEDING NOTED AT THIS TIME.
--- NOTE | 2020-02-17 15:00 | NUR ---
ASSESSMENT COMPLETED THIS RN RESUMING CARE OF PT FROM MARTHA JOHNSON RN.
--- NOTE | 2020-02-17 15:45 | NUR ---
ZOFRAN 4 MG IVP FOR C/O NAUSEA AFTER UP TO VOID.
--- NOTE | 2020-02-17 16:00 | NUR ---
PT DOZING AT INTERVALS. O2 AT 2 L/M/NC AT THIS TIME. MAINTAINING SPO2 @ 93-94%.
--- NOTE | 2020-02-17 17:00 | NUR ---
AMBULATED IN THE WHITMAN WITH STANDBY ASSIST. MOVING WELL. PT HAS VOIDED X2 SINCE PANCHAL D/C'ED.
--- NOTE | 2020-02-17 17:22 | NUR ---
DR. MERCER NOTIFIED OF PT'S DESIRE TO GO HOME THIS EVENING. ORDER RECEIVED.
--- NOTE | 2020-02-17 17:30 | NUR ---
MAINTAINING SPO2 @ 93-94% ON ROOM. ENCOURAGED I.S. INSTRUCTED PT ON USE AGAIN. PT IS RECENT SMOKER OF 1 PACK PER DAY UNTIL AND USING VAPOR NOW. Addendum: 02/17/20 at 2048 by LATONIA MERRITT RN 1729 SHOULD SAY ROOM AIR
--- NOTE | 2020-02-17 18:20 | NUR ---
DISCHARGE INSTRUCTIONS REVIEWED WITH COPY TO PT. RXS GIVEN. STATES UNDERSTANDING OF ALL INSTRUCTIONS AND NEED TO F/U SCHEDULED AND NEEDED.
--- NOTE | 2020-02-17 18:40 | NUR ---
DISMISSED VIA W/C TO AWAITING FAMILY CAR WITH PT'S MOM IN STABLE CONDITION ACC BY LORENZO ELLER. PT C/O NAUSEA WITH MOVEMENT AND REQUESTING ZOFRAN PRESCRIPTION.
--- NOTE | 2020-02-17 18:45 | NUR ---
ZOFRAN ODT 4 MG Q 4 HOURS PRN N/V #15 CALLED TO [facility] PER DR. MERCER INSTRUCTIONS.
--- NOTE | 2020-02-17 23:59 | OPERATIVE REPORT ---
DATE OF SERVICE: PREOPERATIVE DIAGNOSES: 1. A 34-year-old female with dysfunctional uterine bleeding. 2. Dysmenorrhea. POSTOPERATIVE DIAGNOSES: 1. A 34-year-old female with dysfunctional uterine bleeding. 2. Dysmenorrhea. PROCEDURE: Robotic-assisted total laparoscopic hysterectomy with bilateral salpingectomy. SURGEON: Giancarlo Mercer DO STRAPPER OPERATOR: Jaja Rollins DNP, who was necessary for manipulation and retraction throughout the procedure. ANESTHESIA: General endotracheal. ESTIMATED BLOOD LOSS: Minimal. URINE OUTPUT: 40 mL clear at the end of procedure. FLUIDS: 1500 mL lactated Ringer's solution. FINDINGS: A grossly normal appearing external female genitalia, grossly normal appearing uterus, bilateral fallopian tubes and ovaries. SPECIMEN SENT: Uterus and bilateral fallopian tubes. INDICATIONS FOR PROCEDURE: This 34-year-old female is a patient who had been seen in my office on multiple occasions for recurrent issues with abnormal uterine bleeding. She had tried more conservative measures in the past up to and including D and C. Earlier this year, Her D and C was performed and she had a significant improvement initially. However, since then, in the past month, she has had continuous bleeding to the point where it is debilitating and keeping her from applying for work and keeping her at home. Due to the ongoing issues with this, the patient is becoming very frustrated and wishes to proceed with more definitive measures. Risk of hysterectomy was discussed with the patient in detail including risk of bleeding, infection, damage to surrounding structures including, but not limited to bowel, bladder, ureter, kidneys, possible need for reoperation, postoperative complications that may occur, recovery timeframe, risk from anesthesia and even . After everything was discussed with the patient in detail, consent was obtained in the preoperative area and the patient was taken to the operating room. OPERATIVE REPORT IN DETAIL: Once in the operating room, anesthesia was found to be adequate, placed in dorsal lithotomy position, prepped and draped in normal sterile fashion where time out was performed. A Palacios catheter was placed using sterile technique. Weighted speculum was inserted to the patient's vagina. Right angle retractor was used to visualize the cervix. It was grasped at 12 o'clock position using a long Allis clamp. I then gently sounded the uterine cavity, depth was found to be 8 cm. I selected 8 cm Smita uterine manipulator tip and a 3.5 cm colpotomy ring. An 0 Vicryl suture was placed in the anterior lip of the cervix to use as manipulation and traction on the cervix and removed the Allis clamp. The Smita uterine manipulator was advanced into the uterus where the balloon was deployed and the colpotomy ring was advanced around the vaginal fornix, after which excellent bimanual manipulation is appreciated on exam. I then removed all the other instruments from the patient's vagina, performed change of gloves and obtained my attention to the abdomen where infraumbilically I infiltrated this area using 0.25% Marcaine to make an 8 mm incision with a knife and directed Veress needle through the incision, intraperitoneal placement was confirmed using saline drop test. An opening pressure of 4 mmHg was noted and proceeded to maximum pressure of 15 mmHg, at which point I removed the Veress needle and introduced an 8 mm blunt laparoscopic da Amber camera trocar. Once this was in place, I am able to confirm intraperitoneal placement using the da Amber laparoscope. I then have the patient placed in steep Trendelenburg after briefly scanning the upper abdominal anatomy was found to be grossly normal. Once in steep Trendelenburg, I am able to visualize all my pelvic anatomy as described in my findings above. I placed two lateral trocars. These were both 8 mm trocars approximately 8 cm lateral to my infraumbilical trocar. Once these trocars are in place under direct visualization of the laparoscope, I bring in the da Amber robot and docked in appropriate fashion placing the vessel sealer in the left hand and monopolar kimberly in the right hand. I performed the following dissection bilaterally. Starting at the uteroovarian ligament, I bipolar cauterized and transected using the vessel sealer. I then created a window in the mesosalpinx and took this dissection laterally using the vessel sealer amputating the fallopian tube from its surrounding blood supply. I then grasped the round ligament, which I bipolar cauterized and transected using vessel sealer. I then grasped the entire broad ligament, which I bipolar cauterized and transected using the vessel sealer down to the level of the lower uterine segment, at which point I the anterior and posterior leaflets of the broad ligament, anterior leaflet was taken around to the anterior vaginal fornix, posterior leaflet was taken around to the posterior vaginal fornix. This allows me to skeletonize the uterine vessels laterally, which I then bipolar cauterized and transected using the vessel sealer. I then created a colpotomy at 12 o'clock position using monopolar kimberly and took this circumferentially around the vaginal fornix amputating the cervix away from the vagina. The entire specimen uterus, cervix and bilateral fallopian tubes were removed through the vagina. I then closed the lateral vaginal apices of the vaginal cuff using 2-0 Vicryl suture in a [id number] fashion colposuspending the uterosacral ligaments. I closed the remainder of the vaginal cuff using 2-0 V-Loc in a running fashion and excellent hemostasis was noted after doing this. I then undocked the da Amber robot and proceeded with remainder of the case laparoscopically. I copiously irrigated the pelvis using normal saline once again inspected and noted from any of my dissection planes. I placed FloSeal hemostatic agent over all my planes of dissection to ensure excellent postoperative hemostasis. I then had the patient taken out of steep Trendelenburg, I removed the lateral trocars under direct visualization of the laparoscope and infraumbilical trocars left in place to release insufflation and to introduce 10 mL of 0.25% Marcaine into the peritoneal cavity for postoperative pain management. I then removed this trocar as well and the skin reapproximated using 4-0 Monocryl in interrupted subcuticular stitches. Dermabond was applied to all the incisions and Band-Aids were placed over the incisions as well. Palacios catheter was left in place. The patient tolerated the procedure well and was taken to recovery area in stable condition. Lap and sponge counts were correct at the end of the procedure. Instrument counts correct as well. A 2 grams of Ancef and 500 mg of Flagyl were given preoperatively for infection prophylaxis. Job ID: [id number] DocumentID: [id number] Dictated Date: 02/17/2020 13:32:40 It Service Continuity Supervisor Date: 02/17/2020 23:59:03 Dictated By: GIANCARLO MERCER DO
[2020-02-18] MEDS ORDERED: IBUPROFEN 600 MG (MOTRIN) TAB PO SCH (03:45)
--- NOTE | 2020-02-18 07:37 | Anesthesia-General Post-Op ---
General Patient Condition Mental Status/LOC: Same as Preop Cardiovascular: Satisfactory Nausea/Vomiting: Absent Respiratory: Satisfactory Pain: Controlled Complications: Absent Post Op Complications Complications None Follow Up Care/Instructions Patient Instructions None needed. Anesthesia/Patient Condition Patient Condition Patient is doing well, no complaints, stable vital signs, no apparent adverse anesthesia problems. No complications reported per nursing. BETH MULLINS CRNA Feb 18, 2020 07:37
== END 2020-02-17 18:40 | disposition home or self-care (01) ==
LOC: SDC 09:59 → WS 14:23 → SDC 18:40
PROVIDERS: ATTEND Obstetrics & Gynecology
DX: N84.1 Polyp of cervix uteri (principal); N84.0 Polyp of corpus uteri; N83.8 Other noninflammatory disorders of ovary, fallopian tube and broad ligament; N94.6 Dysmenorrhea, unspecified; I10 Essential (primary) hypertension; F32.9 Major depressive disorder, single episode, unspecified; F41.9 Anxiety disorder, unspecified; M19.90 Unspecified osteoarthritis, unspecified site; L40.9 Psoriasis, unspecified; E66.9 Obesity, unspecified; Z68.35 Body mass index [BMI] 35.0-35.9, adult; F17.210 Nicotine dependence, cigarettes, uncomplicated; Z79.899 Other long term (current) drug therapy; Z88.5 Allergy status to narcotic agent; Z88.0 Allergy status to penicillin; Z88.8 Allergy status to other drugs, medicaments and biological substances; Z88.1 Allergy status to other antibiotic agents
CPT/HCPCS: 36415; 80048; 84703; 85025; 86850; 86900; 86901; 87081; 88307; 94664